=== PATIENT | male | born 1970 | race Two or more races ===

== ENCOUNTER 2016-04-29 11:44 | Inpatient (IN) | payer OTHER ==
[~2016-04-29] VITALS: Ht 177.8 cm; Wt 100.1 kg
[2016-04-29] VITALS (20 sets, daily range): BP systolic 123–161; BP diastolic 64–95; PULSE 54–95; RESP 14–21; Ht 177.8 cm; Wt 100.1 kg
[~2016-04-29 11:44] MED LIST: ALBUMIN HUMAN 5% 250 ML INJ ONE; ROCURONIUM 50 MG INJ ONE
[2016-04-29] MEDS ORDERED: metroNIDAZOLE 500 MG/NS (PMX) 100 ML IVPB ONE (12:00)
[2016-04-29] MEDS ORDERED: SOD CHLORIDE 0.9% 1,000 ML IV SCH (12:00)
[2016-04-29] MEDS ORDERED: AMPICILLIN/SULB 3 GM/NS (PMX) 100 ML IVPB ONE (12:00)
[2016-04-29] MEDS ORDERED: MIDAZOLAM 1 MG/ML 2 ML INJ ONE ×2 (13:46)
[2016-04-29] MEDS ORDERED: morphine SULFATE/PF (10 MG/10 ML) INJ ONE (13:47)
[2016-04-29] MEDS ORDERED: PROPOFOL 100 ML ONE (13:50)
[2016-04-29] MEDS ORDERED: ROCURONIUM 50 MG INJ ONE (13:50)
[2016-04-29] MEDS ORDERED: CEFAZOLIN 1 GM INJ ONE (13:50)
[2016-04-29] MEDS ORDERED: ROPIVACAINE 0.5 % 30 ML VIAL ONE (13:51)
[2016-04-29] MEDS ORDERED: PHENYLephrine (100 MCG/ML) 5ML SYG ONE (15:06)
[2016-04-29] MEDS ORDERED: METOCLOPRAMIDE 10 MG INJ ONE (16:23)
[2016-04-29] MEDS ORDERED: ONDANSETRON 4 MG INJ ONE (16:23)
[2016-04-29] MEDS ORDERED: DEXAMETHASONE 4 MG/ML 1 ML INJ ONE (16:23)
[2016-04-29] MEDS ORDERED: EPHEDrine SULFATE 50 MG/5 ML SYG IV PRN (17:00)
[2016-04-29] MEDS ORDERED: MEPERIDINE 25 MG INJ IV PRN (17:00)
[2016-04-29] MEDS ORDERED: ALBUMIN HUMAN 5% 250 ML IV PRN (17:00)
[2016-04-29] MEDS ORDERED: METOCLOPRAMIDE 10 MG INJ IV PRN (17:00)
[2016-04-29] MEDS ORDERED: NALBUPHINE HCL (10 MG/1 ML) INJ IV PRN (17:00)
[2016-04-29] MEDS ORDERED: DIPHENHYDRAMINE 50 MG INJ IV PRN ×2 (17:00)
[2016-04-29] MEDS ORDERED: GLYCOPYRROLATE 0.4 MG INJ ONE (17:00)
[2016-04-29] MEDS ORDERED: ONDANSETRON 4 MG INJ IV PRN ×2 (17:00)
[2016-04-29] MEDS ORDERED: HYDROmorphONE (0.2 MG/ML) 10ML SYG IV PRN ×3 (17:00)
[2016-04-29] MEDS ORDERED: morphine 4 MG/ML VIAL IV PRN (17:00)
[2016-04-29] MEDS ORDERED: morphine (1 MG/ML) 10ML SYRINGE IV PRN ×3 (17:00)
[2016-04-29] MEDS ORDERED: NEOSTIGMINE 3 MG/3 ML SYRINGE ONE (17:00)
[2016-04-29] MEDS ORDERED: NALOXONE (0.4 MG/ML) INJ IV PRN (17:00)
[2016-04-29] MEDS: LACTATED RINGER'S 1,000 ML IV SCH ×2 (17:16→20:00)
[2016-04-29] MEDS ORDERED: metroNIDAZOLE 500 MG/NS (PMX) 100 ML IVPB SCH (17:30)
[2016-04-29] MEDS ORDERED: AMPICILLIN/SULB 3 GM/NS (PMX) 100 ML IVPB SCH (17:30)
--- NOTE | 2016-04-29 17:35 | OPR ---
DATE OF OPERATION: 04/29/2016 INDICATION: This is a 46-year-old male presenting with the parastomal hernia and a colostomy. He r equests surgical reversal of the colostomy. Risks, alternatives, benefits, and personnel were discu ssed with the patient. Potential complications including, but not limited to, bleeding, infection, anastomotic leak, ureteral injury were discussed with the patient. The patient expressed his unders tanding and consents to the operation. PREOPERATIVE DIAGNOSIS: Colostomy and parastomal hernia. POSTOPERATIVE DIAGNOSIS: Colostomy and parastomal hernia. OPERATION PERFORMED: 1. Reversal of Melissa's pouch with colo-low pelvic rectal anastomosis. 2. Partial colectomy. 3. Parastomal hernia repair. 4. Lysis of adhesions of an hour and a half. SURGEON: Marilee Vernon MD SPECIMEN: Two anastomotic donuts and distal colon. COMPLICATIONS: None. ANESTHESIA: General. DESCRIPTION OF PROCEDURE: The patient was taken to the OR and prepped and draped in usual sterile fashion. Surgical timeout was performed. IV antibiotics were given. Incision was made around the colostomy after the colostomy was sutured closed. Dissection cautery was carried down to the parast omal hernia and the parastomal hernia was identified. The midline incision was performed, excising the scar tissue from prior operation. Fascia was opened in a careful manner without any issues. Th e parastomal hernia was identified. The colon was then removed from the parastomal hernia. The par astomal hernia was closed primarily with running #0 PDS. The distal colon was then resected approxi mately 8 inches from the colostomy site and this was divided with a YUKI stapler 75 blue load. Lysis of adhesions was performed for approximately an hour and half to get down to the pelvis. There are sutures in the low pelvis. Anal sizer placed from 25 to 29. The EEA was then placed and opened wi th the anvil pointing out. The female anvil was also sutured into the colon using a pursestring #2- 0 Prolene. This was then approximated to the male anvil and was closed. The EEA was fired and held with approximately 1 minute of pressure. Leak test was performed with a Constantin syringe and air aft er irrigation of the pelvis, there was no evidence of any air leakage. The midline incision was the n closed with a running 0 Prolene from proximal to distal and distal to proximal. The surgical site was irrigated with irrigation and Betadine. The skin was closed with skin bennie. The colostomy site was closed with a pursestring of 0 Vicryl. There was good hemostasis. Dry dressings were appl ied. Dictated By: MARILEE KOTHARI/NELSON Conf#: [id number] DID#: [id number]
[2016-04-29] MEDS: FENTAnyl 2MCG/ML-ROPIV 0.2% 100 ML BAG EPI SCH (18:19)
[2016-04-29 19:21] LABS: HEMATOCRIT 47.7 % (42.0-52.0); HEMOGLOBIN 16.2 g/dl (14.0-18.0); MEAN CORPUSCULAR HEMOGLOBIN 30.2 pg (29.0-33.0); MEAN CORPUSCULAR VOLUME 88.9 fl (82.0-101.0); MEAN PLATELET VOLUME 9.6 fl (7.4-10.4); PLATELET COUNT 106 10^3/UL (140-440); RED BLOOD COUNT 5.36 10^6/ul (4.70-6.10); RED CELL DISTRIBUTION WIDTH 14.9 % (11.5-14.5); UNCORRECTED WBC 16.5 10^3/ul (4.8-10.8); WHITE BLOOD COUNT 16.5 10^3/ul (4.8-10.8)
[2016-04-29 19:22] LABS: CONDITION 1; SUSPECT 1
[2016-04-29 19:23] LABS: LH ANALYZER COMMENTS 1
[2016-04-29 19:29] LABS: ALBUMIN 3.8 g/dl (3.3-4.9); POTASSIUM 3.9 mmol/L (3.5-5.1)
[2016-04-29 19:31] LABS: BILIRUBIN,INDIRECT 0.3 mg/dl (0-1.1); BILIRUBIN,TOTAL 0.3 mg/dl (0.2-1.3); CREATININE 0.66 mg/dl (0.61-1.24)
[2016-04-29 19:32] LABS: ALBUMIN/GLOBULIN RATIO 1.65; CALCIUM 8.6 mg/dl (8.4-10.2); TOTAL PROTEIN 6.1 g/dl (6.1-8.1)
[2016-04-29] MEDS: AMPICILLIN/SULB 3 GM/NS (PMX) 100 ML IVPB SCH (20:57)
[2016-04-29] MEDS: metroNIDAZOLE 500 MG/NS (PMX) 100 ML IVPB SCH (21:46)
[2016-04-29 22:19] LABS: HEMATOCRIT 47.7 % (42.0-52.0); HEMOGLOBIN 16.2 g/dl (14.0-18.0); RED BLOOD COUNT 5.41 10^6/ul (4.70-6.10); UNCORRECTED WBC 18.1 10^3/ul (4.8-10.8); WHITE BLOOD COUNT 18.1 10^3/ul (4.8-10.8)
[2016-04-29 22:20] LABS: MEAN CORPUSCULAR HEMOGLOBIN 29.9 pg (29.0-33.0); MEAN CORPUSCULAR HGB CONC 33.9 g/dl (32.0-37.0); MEAN CORPUSCULAR VOLUME 88.2 fl (82.0-101.0); MEAN PLATELET VOLUME 9.1 fl (7.4-10.4); PLATELET COUNT 230 10^3/UL (140-440); RED CELL DISTRIBUTION WIDTH 14.6 % (11.5-14.5)
[2016-04-29 23:44] LABS: LYMPHOCYTES # 0.7 10^3/ul (0.8-2.9); MONOCYTE # 0.4 10^3/ul (0.3-0.9)
[2016-04-30 00:30] VITALS: BP 140/67; PULSE 89; RESP 19
[2016-04-30] MEDS: LACTATED RINGER'S 1,000 ML IV SCH ×3 (03:16→21:28)
[2016-04-30] MEDS: AMPICILLIN/SULB 3 GM/NS (PMX) 100 ML IVPB SCH ×3 (03:19→15:39)
[2016-04-30] MEDS: HYDROmorphONE 1 MG/ML SYG IV PRN ×2 (04:45→11:31)
[2016-04-30] MEDS: FENTAnyl 2MCG/ML-ROPIV 0.2% 100 ML BAG EPI SCH ×2 (04:46→18:43)
[2016-04-30 05:02] VITALS: BP 133/63; PULSE 97; RESP 18
[2016-04-30] MEDS: metroNIDAZOLE 500 MG/NS (PMX) 100 ML IVPB SCH ×2 (05:07→14:04)
[2016-04-30 07:41] VITALS: BP 136/82; RESP 19
[2016-04-30 13:00] VITALS: BP 155/78; PULSE 74; RESP 18
[2016-04-30] MEDS ORDERED: IBUPROFEN 600 MG TAB PO PRN (14:30)
--- NOTE | 2016-04-30 14:51 | HP ---
Date/Time of Note Date/Time of Note DATE: 04/30/16 TIME: 14:10 Assessment/Plan VTE Prophylaxis VTE Prophylaxis Intervention: other Lines/Catheters IV Catheter Type (from Nrs): Peripheral IV Urinary Cath still in place: No Assessment/Plan Assessment/Plan -Colostomy and parastomal hernia. - sp Reversal of Melissa's pouch with colo-low pelvic rectal anastomosis. - sp Partial colectomy. - sp Parastomal hernia repair. - sp Lysis of adhesions of an hour and a half. - Marijuana drug abuser PLAN: Admit to [facility] - incentive spirometer - clear liquid diet- advance per surgery - per surgery - pain control- Dilaudid - IVF - Bowel regimen - am labs DW Dr Farr HPI/ROS Admit Date/Time Admit Date/Time Apr 29, 2016 at 11:44 Hx of Present Illness This is a 46-year-old male presenting with the parastomal hernia and a colostomy. Per patient request to Dr Vernon, surgical reversal of the colostomy was performed. Patient had some post op pain and was admitted to [facility] floor for pain management. c/o abdominla surgery site- abdominal dressing noted- small amount of serosanguineous drainage from earlier noted, no new drainage reported. Patient denies any chest pain, shortness of breath, dizziness, palpitations, headache, fever, chills, focal weakness/numbness, abdominal pain/ nvd. Patient is getting blood draw now as earlier he refused blood work. ROS Eyes: no complaints ENT: no complaints Respiratory: no complaints Cardiovascular: no complaints Gastrointestinal: other (inscional pain), pain Genitourinary: no complaints Musculoskeletal: no complaints Skin: no complaints Neurologic: no complaints Endocrine: no complaints Lymphatic: no complaints Immunologic: no complaints PMH/Family/Social Family History Significant Family History: no pertinent family hx Social History Smoking Status: Former smoker Drug Use: marijuana Exam/Review of Systems Vital Signs Vitals Vital Signs Date Time Temp Pulse Resp B/P Pulse Ox O2 Delivery O2 Flow Rate FiO2 04/30/16 10:23 Nasal Cannula 2.0 04/30/16 07:41 98.0 104 19 136/82 97 Intake and Output 04/29/16 04/29/16 04/30/16 15:00 23:00 07:00 Intake Total 3200 ml 950 ml Output Total 700 ml 950 ml Balance 2500 ml 0 ml Exam Constitutional: alert, oriented, well developed Psych: no complaints Head: atraumatic Eyes: EOMI, PERRL, nl sclera ENMT: nl external ears & nose Neck: non-tender Respiratory: clear to auscultation Cardiovascular: nl pulses Gastrointestinal: non-tender, soft Musculoskeletal: nl extremities to inspection Extremities: normal pulses Neurological: nl mental status, nl speech Skin: other Lymph: nontender Labs Result Diagram: 04/29/16210904/29/161912 Medications Medications Current Medications Hydromorphone HCl (Dilaudid) 0.2 mg Q2H PRN IV PAIN LEVEL 1-5 Last administered on 04/30/16 04:45; Admin Dose 0.2 MG; Start 04/29/16 at 17:00 Hydromorphone HCl (Dilaudid) 0.4 mg Q2H PRN IV PAIN LEVEL 6-10 Last administered on 04/30/16 11:31; Admin Dose 0.4 MG; Start 04/29/16 at 17:00 Morphine Sulfate (morphine) 2 mg Q2H PRN IV PAIN LEVEL 1-5; Start 04/29/16 at 17:00 Morphine Sulfate (morphine) 4 mg Q2H PRN IV PAIN LEVEL 6-10; Start 04/29/16 at 17:00 Diphenhydramine HCl (Benadryl) 25 mg Q4H PRN IV PRURITUS; Start 04/29/16 at 17: 00 Nalbuphine HCl (Nubain) 10 mg Q4H PRN IV PRURITUS; Start 04/29/16 at 17:00 Ondansetron HCl (Zofran Inj) 4 mg Q6H PRN IV NAUSEA AND/OR VOMITING; Start at 17:00 Naloxone HCl 0.2 mg 0.2 mg Q2M PRN IV FOR RESP RATE 8 OR LESS; Start 04/29/16 at 17:00 Lactated Ringer's 1,000 ml @ 100 mls/hr Q10H IV Last administered on 14:05; Admin Dose 100 MLS/HR; Start 04/29/16 at 17:16 Ampicillin Sodium/ Sulbactam Sodium 100 ml @ 200 mls/hr Q6H IVPB Last administered on 04/30/16 08:34; Admin Dose 200 MLS/HR; Start 04/29/16 at 21:00 ; Stop 04/30/16 at 20:59 Metronidazole (Flagyl 500 Mg (Pmx)) 100 ml @ 100 mls/hr Q8H IVPB Last administered on 04/30/16t 14:04; Admin Dose 100 MLS/HR; Start 04/29/16 at 22:00 ; Stop 04/30/16 at 21:59 CARLOS CARRILLO Apr 30, 2016 14:20
[2016-04-30] MEDS ORDERED: ACETAMINOPHEN 325 MG TAB PO PRN (15:00)
--- NOTE | 2016-04-30 15:03 | CONS ---
Date/Time of Note Date/Time of Note DATE: 04/30/16 TIME: 14:58 Consultation Date/Type/Reason Admit Date/Time Apr 29, 2016 at 11:44 Initial Consult Date 04/29/16 Type of Consultation: Anesthesia Reason for Consultation Anesthesia for Colostomy Reversal 24 HR Interval Summary Free Text/Dictation POD#1 S/P Colostomy reversal Patient is a 46 yr old male with history of IV drug abuse. He has had Colostomy and is here for Colostomy reversal Procedure, he went under General and Epidural anesthesia, he received Epidural Duramorph for post op pain control. He is doing well, he was ambulated, complaining of mild pain responded well to PO meds for breakthrough pain, he is alert and oriented. No sensory or motor deficit, catheter site clean intact. No apnea or nausea or vomiting or itching noted. Epidural infusion was running at 6 ml/h it increased to 8 cc/hr and a bolus of 8 cc given, his RN was notified. Will follow up. Exam/Review of Systems Vital Signs Vitals Vital Signs Date Time Temp Pulse Resp B/P Pulse Ox O2 Delivery O2 Flow Rate FiO2 04/30/16 10:23 Nasal Cannula 2.0 04/30/16 07:41 98.0 104 19 136/82 97 Intake and Output 04/29/16 04/29/16 04/30/16 15:00 23:00 07:00 Intake Total 3200 ml 950 ml Output Total 700 ml 950 ml Balance 2500 ml 0 ml Results Result Diagram: 04/29/160 04/29/16 1913 Results 24 hrs Laboratory Tests Test 04/29/16 19:13 04/29/16 21:10 Alanine Aminotransferase (ALT/SGPT) 33 Albumin 3.8 Albumin/Globulin Ratio 1.65 Alkaline Phosphatase 105 Anion Gap 16 Aspartate Amino Transf (AST/SGOT) 23 Basophils # Basophils % Blood Morphology Comment Blood Urea Nitrogen 10 Calcium Level 8.6 Carbon Dioxide Level 24 Chloride Level 104 Creatinine 0.66 Direct Bilirubin 0.00 Eosinophils # Eosinophils % Globulin 2.30 Glucose Level 121 Hematocrit 47.7 47.7 Hemoglobin 16.2 16.2 Indirect Bilirubin 0.3 Lymphocytes # 0.7 L Lymphocytes % 4.0 L Mean Corpuscular Hemoglobin 30.2 29.9 Mean Corpuscular Hemoglobin Concent 34.0 33.9 Mean Corpuscular Volume 88.9 88.2 Mean Platelet Volume 9.6 9.1 Monocytes # 0.4 Monocytes % 2.0 Neutrophils # 17.0 H Neutrophils % 94.0 H Nucleated Red Blood Cells # Nucleated Red Blood Cells % Platelet Count 106 L 230 # Potassium Level 3.9 Red Blood Count 5.36 5.41 Red Cell Distribution Width 14.9 H 14.6 H Sodium Level 140 Total Bilirubin 0.3 Total Protein 6.1 White Blood Count 16.5 H 18.1 H Differential Comment MANUAL DIFF Medications Medications Current Medications Hydromorphone HCl (Dilaudid) 0.2 mg Q2H PRN IV PAIN LEVEL 1-5 Last administered on 04/30/16 04:45; Admin Dose 0.2 MG; Start 04/29/16 at 17:00 Hydromorphone HCl (Dilaudid) 0.4 mg Q2H PRN IV PAIN LEVEL 6-10 Last administered on 04/30/16 11:31; Admin Dose 0.4 MG; Start 04/29/16 at 17:00 Morphine Sulfate (morphine) 2 mg Q2H PRN IV PAIN LEVEL 1-5; Start 04/29/16 at 17:00 Morphine Sulfate (morphine) 4 mg Q2H PRN IV PAIN LEVEL 6-10; Start 04/29/16 at 17:00 Diphenhydramine HCl (Benadryl) 25 mg Q4H PRN IV PRURITUS; Start 04/29/16 at 17: 00 Nalbuphine HCl (Nubain) 10 mg Q4H PRN IV PRURITUS; Start 04/29/16 at 17:00 Ondansetron HCl (Zofran Inj) 4 mg Q6H PRN IV NAUSEA AND/OR VOMITING; Start at 17:00 Naloxone HCl 0.2 mg 0.2 mg Q2M PRN IV FOR RESP RATE 8 OR LESS; Start 04/29/16 at 17:00 Lactated Ringer's 1,000 ml @ 100 mls/hr Q10H IV Last administered on 14:05; Admin Dose 100 MLS/HR; Start 04/29/16 at 17:16 Ampicillin Sodium/ Sulbactam Sodium 100 ml @ 200 mls/hr Q6H IVPB Last administered on 04/30/16 08:34; Admin Dose 200 MLS/HR; Start 04/29/16 at 21:00 ; Stop 04/30/16 at 20:59 Metronidazole (Flagyl 500 Mg (Pmx)) 100 ml @ 100 mls/hr Q8H IVPB Last administered on 04/30/16 14:04; Admin Dose 100 MLS/HR; Start 04/29/16 at 22:00 ; Stop 04/30/16 at 21:59 Ibuprofen (Motrin) 600 mg Q6 PRN PO PAIN Last administered on 04/30/16 14:32; Admin Dose 600 MG; Start 04/30/16 at 14:30 Docusate Sodium (Colace) 100 mg BID PO ; Start 04/30/16 at 21:00 Acetaminophen (Tylenol Tab) 650 mg Q6H PRN PO PAIN AND OR ELEVATED TEMP; Start 04/30/16 at 15:00 MIRYAM FARIA MD Apr 30, 2016 15:02
[2016-04-30 15:24] LABS: BASOPHILS % 0.2 % (0.0-2.0); EOSINOPHILS % 0.1 % (0.0-7.0); HEMATOCRIT 44.4 % (42.0-52.0); HEMOGLOBIN 14.7 g/dl (14.0-18.0); LYMPHOCYTES # 1.7 10^3/ul (0.8-2.9); LYMPHOCYTES % 11.2 % (15.0-51.0); MEAN CORPUSCULAR HEMOGLOBIN 29.6 pg (29.0-33.0); MEAN CORPUSCULAR HGB CONC 33.1 g/dl (32.0-37.0); MEAN CORPUSCULAR VOLUME 89.3 fl (82.0-101.0); MONOCYTE # 1.5 10^3/ul (0.3-0.9); MONOCYTES % 9.7 % (0.0-11.0); NEUTROPHILS % 78.3 % (39.0-77.0); PLATELET COUNT 226 10^3/UL (140-415); RED BLOOD COUNT 4.97 10^6/ul (4.70-6.10); RED CELL DISTRIBUTION WIDTH 13.9 % (11.5-14.5); WHITE BLOOD COUNT 15.4 10^3/ul (4.8-10.8)
[2016-04-30 15:28] LABS: MEAN PLATELET VOLUME 11.7 fl (7.4-10.4)
[2016-04-30 15:29] LABS: ADD SCAN DIFF NO
[2016-04-30 16:52] LABS: PLATELET ESTIMATE PLT APPEAR ADEQUATE
[2016-04-30] MEDS ORDERED: KETOROLAC 30 MG INJ IV PRN (17:30)
[2016-04-30 18:56] LABS: ALBUMIN 3.2 g/dl (3.3-4.9); POTASSIUM 4.1 mmol/L (3.5-5.1)
[2016-04-30 18:58] LABS: BILIRUBIN,INDIRECT 0.6 mg/dl (0-1.1); BILIRUBIN,TOTAL 0.6 mg/dl (0.2-1.3); CREATININE 0.68 mg/dl (0.61-1.24)
[2016-04-30 18:59] LABS: ALBUMIN/GLOBULIN RATIO 1.33; CALCIUM 8.5 mg/dl (8.4-10.2); TOTAL PROTEIN 5.6 g/dl (6.1-8.1)
[2016-04-30 19:13] VITALS: BP 152/91; RESP 18; RESP 74
--- NOTE | 2016-04-30 19:14 | PN ---
DATE: 04/30/2016 SUBJECTIVE: This is postop day #1 for this gentleman. Patient had repair of a paracolostomy hernia , closure of colostomy and reconstruction of low pelvic anastomosis, colorectal anastomosis. Compla ins of too much pain. Has been in the bed and required breakthrough pain medication and we had to i ncrease the dosage of the epidural. OBJECTIVE VITAL SIGNS: Temperature 98.6, heart rate 74 - once has been 104, respirations 18, blood pressure 1 65/78, saturation 99% on 2 L nasal cannula. ABDOMEN: Bowel sounds are hypoactive. Dressing is saturated. We had to change the dressing; the d ressing completely changed. Some blood was previously under the dressing, cleaned it and put new dr que. Epidural is running. LOWER EXTREMITIES: No pitting edema, no calf tenderness. Sequential compression devices on the leg s. GENITOURINARY: Carroll catheter is in place. LABORATORY DATA: WBC is 15,400; with 78% segmented; shift to the left; hemoglobin 14.7; hematocrit 44.4 ASSESSMENT: Stable postop day #1. PLAN 1. Increase dosage of the epidural, which was done by the anesthesiologist. 2. We will give Toradol 30 mg IV q.6h. around the clock to add to the pain medication regimen and a lso patient has Dilaudid for breakthrough pain medication. Keep the patient n.p.o. and also keep th e patient in bed rest as long as he is getting epidural. Dictated By: GEOVANNY GRANDE MD PS/NTS Conf#: [id number] DID#: [id number]
[2016-04-30] MEDS: DOCUSATE SODIUM 100 MG CAP PO SCH (21:28)
[2016-04-30] MEDS: KETOROLAC 30 MG INJ IV SCH (23:16)
[2016-05-01] MEDS: HYDROmorphONE 1 MG/ML SYG IV PRN ×3 (04:32→22:16)
[2016-05-01] MEDS: KETOROLAC 30 MG INJ IV SCH ×4 (05:30→23:11)
[2016-05-01] MEDS: LACTATED RINGER'S 1,000 ML IV SCH ×2 (06:28→16:18)
[2016-05-01] MEDS: FENTAnyl 2MCG/ML-ROPIV 0.2% 100 ML BAG EPI SCH ×2 (06:29→15:58)
[2016-05-01 07:00] VITALS: BP 129/78; RESP 20
[2016-05-01] MEDS: DOCUSATE SODIUM 100 MG CAP PO SCH ×2 (09:18→20:12)
--- NOTE | 2016-05-01 09:27 | PN ---
Date/Time of Note Date/Time of Note DATE: 05/01/16 TIME: 09:26 Assessment/Plan VTE Prophylaxis VTE Prophylaxis Intervention: SCD's Lines/Catheters IV Catheter Type (from Nrsg): Peripheral IV Urinary Cath still in place: Yes Reason Cath still needed: other (indicate) Assessment/Plan Chief Complaint/Hosp Course s/p reversal of santos's pouch Problems: Assessment/Plan continue care await bowel function Subjective 24 Hr Interval Summary Free Text/Dictation no nausea, no vomiting, tolerating clears Exam/Review of Systems Vital Signs Vitals Vital Signs Date Time Temp Pulse Resp B/P Pulse Ox O2 Delivery O2 Flow Rate FiO2 05/01/16 07:00 97.1 66 20 129/78 100 04/30/16 20:05 Nasal Cannula 2.0 Intake and Output 04/30/16 04/30/16 05/01/16 15:00 23:00 07:00 Intake Total 200 ml 1650 ml 1550 ml Output Total 1200 ml 2300 ml Balance 200 ml 450 ml -750 ml Exam clean dry intact, small drainage from colostomy site Results Result Diagram: 04/30/16 1415 04/30/16 1830 Results 24 hrs Laboratory Tests Test 04/30/16 14:15 04/30/16 18:30 Basophils # 0.0 Basophils % 0.2 Differential Comment AUTO w/SCAN Eosinophils # 0.0 Eosinophils % 0.1 Hematocrit 44.4 Hemoglobin 14.7 Lymphocytes # 1.7 Lymphocytes % 11.2 L Mean Corpuscular Hemoglobin 29.6 Mean Corpuscular Hemoglobin Concent 33.1 Mean Corpuscular Volume 89.3 Mean Platelet Volume 11.7 #H Monocytes # 1.5 H Monocytes % 9.7 Neutrophils # 12.0 H Neutrophils % 78.3 H Nucleated Red Blood Cells # 0.0 Nucleated Red Blood Cells % 0.0 Platelet Count 226 Platelet Estimate PLT APPEAR ADEQUATE Red Blood Count 4.97 Red Cell Distribution Width 13.9 White Blood Count 15.4 H Alanine Aminotransferase (ALT/SGPT) 21 Albumin 3.2 L Albumin/Globulin Ratio 1.33 Alkaline Phosphatase 78 Anion Gap 15 Aspartate Amino Transf (AST/SGOT) 22 Blood Urea Nitrogen 12 Calcium Level 8.5 Carbon Dioxide Level 24 Chloride Level 101 Creatinine 0.68 Direct Bilirubin 0.00 Globulin 2.40 Glucose Level 102 Indirect Bilirubin 0.6 Potassium Level 4.1 Sodium Level 136 Total Bilirubin 0.6 Total Protein 5.6 L Medications Medications Current Medications Hydromorphone HCl (Dilaudid) 0.2 mg Q2H PRN IV PAIN LEVEL 1-5 Last administered on 05/01/16 04:32; Admin Dose 0.2 MG; Start 04/29/16 at 17:00 Hydromorphone HCl (Dilaudid) 0.4 mg Q2H PRN IV PAIN LEVEL 6-10 Last administered on 04/30/16 11:31; Admin Dose 0.4 MG; Start 04/29/16 at 17:00 Morphine Sulfate (morphine) 2 mg Q2H PRN IV PAIN LEVEL 1-5; Start 04/29/16 at 17:00 Morphine Sulfate (morphine) 4 mg Q2H PRN IV PAIN LEVEL 6-10; Start 04/29/16 at 17:00 Diphenhydramine HCl (Benadryl) 25 mg Q4H PRN IV PRURITUS; Start 04/29/16 at 17: 00 Nalbuphine HCl (Nubain) 10 mg Q4H PRN IV PRURITUS; Start 04/29/16 at 17:00 Ondansetron HCl (Zofran Inj) 4 mg Q6H PRN IV NAUSEA AND/OR VOMITING; Start at 17:00 Naloxone HCl 0.2 mg 0.2 mg Q2M PRN IV FOR RESP RATE 8 OR LESS; Start 04/29/16 at 17:00 Lactated Ringer's (Lr) 1,000 ml @ 100 mls/hr Q10H IV Last administered on 05/01 06:28; Admin Dose 100 MLS/HR; Start 04/29/16 at 17:16 Ibuprofen (Motrin) 600 mg Q6 PRN PO PAIN Last administered on 04/30/16 14:32; Admin Dose 600 MG; Start 04/30/16 at 14:30; Status Future Hold Docusate Sodium (Colace) 100 mg BID PO Last administered on 05/01/16 09:18; Admin Dose 100 MG; Start 04/30/16 at 21:00 Acetaminophen (Tylenol Tab) 650 mg Q6H PRN PO PAIN AND OR ELEVATED TEMP; Start 04/30/16 at 15:00 Ketorolac Tromethamine (Toradol) 30 mg Q6H IV Last administered on 05/01/16 09 :18; Admin Dose 30 MG; Start 04/30/16 at 23:30; Stop 05/03/16 at 23:29 Pola MORGAN May 01, 2016 09:27
[2016-05-01 09:33] LABS: ADD SCAN DIFF NO; BASOPHILS % 0.4 % (0.0-2.0); EOSINOPHILS # 0.1 10^3/ul (0.0-0.5); EOSINOPHILS % 1.3 % (0.0-7.0); HEMATOCRIT 39.5 % (42.0-52.0); HEMOGLOBIN 12.9 g/dl (14.0-18.0); LYMPHOCYTES % 19.3 % (15.0-51.0); MEAN CORPUSCULAR HEMOGLOBIN 29.2 pg (29.0-33.0); MEAN CORPUSCULAR HGB CONC 32.7 g/dl (32.0-37.0); MEAN CORPUSCULAR VOLUME 89.4 fl (82.0-101.0); MEAN PLATELET VOLUME 11.1 fl (7.4-10.4); MONOCYTE # 1.2 10^3/ul (0.3-0.9); MONOCYTES % 11.5 % (0.0-11.0); NEUTROPHIL # 6.9 10^3/ul (1.6-7.5); NEUTROPHILS % 67.3 % (39.0-77.0); PLATELET COUNT 206 10^3/UL (140-415); RED BLOOD COUNT 4.42 10^6/ul (4.70-6.10); RED CELL DISTRIBUTION WIDTH 14.1 % (11.5-14.5); WHITE BLOOD COUNT 10.2 10^3/ul (4.8-10.8)
[2016-05-01 09:50] LABS: ALBUMIN 3.2 g/dl (3.3-4.9)
[2016-05-01 09:51] LABS: POTASSIUM 3.9 mmol/L (3.5-5.1)
[2016-05-01 09:53] LABS: BILIRUBIN,INDIRECT 0.5 mg/dl (0-1.1); BILIRUBIN,TOTAL 0.5 mg/dl (0.2-1.3); CREATININE 0.71 mg/dl (0.61-1.24)
[2016-05-01 09:54] LABS: ALBUMIN/GLOBULIN RATIO 1.28; CALCIUM 8.6 mg/dl (8.4-10.2); TOTAL PROTEIN 5.7 g/dl (6.1-8.1)
[2016-05-01 14:00] VITALS: BP 118/68; PULSE 74; RESP 17
--- NOTE | 2016-05-01 15:41 | CONS ---
Date/Time of Note Date/Time of Note DATE: 05/01/16 TIME: 15:39 Consultation Date/Type/Reason Admit Date/Time Apr 29, 2016 at 11:44 Initial Consult Date 04/29/16 Type of Consultation: Anesthesia Reason for Consultation Colostomy Reversal 24 HR Interval Summary Free Text/Dictation POD#2 S/P Colostomy reversal Patient is a 46 yr old male with history of IV drug abuse. He has had Colostomy and is here for Colostomy reversal Procedure, he went under General and Epidural anesthesia, he received Epidural Duramorph for post op pain control. He is doing much better than yesterday, he was ambulated, complaining of no pain responded well to PO meds for breakthrough pain, he is alert and oriented. No sensory or motor deficit, catheter site clean intact. No apnea or nausea or vomiting or itching noted. Epidural infusion was running at 8 ml/h will continue the same dose seems to be working well for him. Will follow up. Exam/Review of Systems Vital Signs Vitals Vital Signs Date Time Temp Pulse Resp B/P Pulse Ox O2 Delivery O2 Flow Rate FiO2 05/01/16 07:00 97.1 66 20 129/78 100 04/30/16 20:05 Nasal Cannula 2.0 Intake and Output 04/30/16 04/30/16 05/01/16 15:00 23:00 07:00 Intake Total 200 ml 1650 ml 1550 ml Output Total 1200 ml 2300 ml Balance 200 ml 450 ml -750 ml Results Result Diagram: 05/01/16 0900 05/01/16 0900 Results 24 hrs Laboratory Tests Test 04/30/16 18:30 05/01/16 09:00 Alanine Aminotransferase (ALT/SGPT) 21 27 Albumin 3.2 L 3.2 L Albumin/Globulin Ratio 1.33 1.28 Alkaline Phosphatase 78 77 Anion Gap 15 13 Aspartate Amino Transf (AST/SGOT) 22 20 Blood Urea Nitrogen 12 10 Calcium Level 8.5 8.6 Carbon Dioxide Level 24 30 Chloride Level 101 102 Creatinine 0.68 0.71 Direct Bilirubin 0.00 0.00 Globulin 2.40 2.50 Glucose Level 102 95 Indirect Bilirubin 0.6 0.5 Potassium Level 4.1 3.9 Sodium Level 136 141 Total Bilirubin 0.6 0.5 Total Protein 5.6 L 5.7 L Basophils # 0.0 Basophils % 0.4 Eosinophils # 0.1 Eosinophils % 1.3 Hematocrit 39.5 L Hemoglobin 12.9 L Lymphocytes # 2.0 Lymphocytes % 19.3 Mean Corpuscular Hemoglobin 29.2 Mean Corpuscular Hemoglobin Concent 32.7 Mean Corpuscular Volume 89.4 Mean Platelet Volume 11.1 H Monocytes # 1.2 H Monocytes % 11.5 H Neutrophils # 6.9 Neutrophils % 67.3 Nucleated Red Blood Cells # 0.0 Nucleated Red Blood Cells % 0.0 Platelet Count 206 Red Blood Count 4.42 L Red Cell Distribution Width 14.1 White Blood Count 10.2 # Medications Medications Current Medications Hydromorphone HCl (Dilaudid) 0.2 mg Q2H PRN IV PAIN LEVEL 1-5 Last administered on 05/01/16 14:34; Admin Dose 0.2 MG; Start 04/29/16 at 17:00 Hydromorphone HCl (Dilaudid) 0.4 mg Q2H PRN IV PAIN LEVEL 6-10 Last administered on 04/30/16 11:31; Admin Dose 0.4 MG; Start 04/29/16 at 17:00 Morphine Sulfate (morphine) 2 mg Q2H PRN IV PAIN LEVEL 1-5; Start 04/29/16 at 17:00 Morphine Sulfate (morphine) 4 mg Q2H PRN IV PAIN LEVEL 6-10; Start 04/29/16 at 17:00 Diphenhydramine HCl (Benadryl) 25 mg Q4H PRN IV PRURITUS; Start 04/29/16 at 17: 00 Nalbuphine HCl (Nubain) 10 mg Q4H PRN IV PRURITUS; Start 04/29/16 at 17:00 Ondansetron HCl (Zofran Inj) 4 mg Q6H PRN IV NAUSEA AND/OR VOMITING; Start at 17:00 Naloxone HCl 0.2 mg 0.2 mg Q2M PRN IV FOR RESP RATE 8 OR LESS; Start 04/29/16 at 17:00 Lactated Ringer's (Lr) 1,000 ml @ 100 mls/hr Q10H IV Last administered on 05/01 06:28; Admin Dose 100 MLS/HR; Start 04/29/16 at 17:16 Ibuprofen (Motrin) 600 mg Q6 PRN PO PAIN Last administered on 04/30/16 14:32; Admin Dose 600 MG; Start 04/30/16 at 14:30; Status Future Hold Docusate Sodium (Colace) 100 mg BID PO Last administered on 05/01/16 09:18; Admin Dose 100 MG; Start 04/30/16 at 21:00 Acetaminophen (Tylenol Tab) 650 mg Q6H PRN PO PAIN AND OR ELEVATED TEMP; Start 04/30/16 at 15:00 Ketorolac Tromethamine (Toradol) 30 mg Q6H IV Last administered on 05/01/16 09 :18; Admin Dose 30 MG; Start 04/30/16 at 23:30; Stop 05/03/16 at 23:29 MIRYAM FARIA MD May 01, 2016 15:41
--- NOTE | 2016-05-01 17:50 | PN ---
Date/Time of Note Date/Time of Note DATE: 05/01/16 TIME: 17:44 Assessment/Plan VTE Prophylaxis VTE Prophylaxis Intervention: SCD's Lines/Catheters IV Catheter Type (from Nrsg): Peripheral IV Urinary Cath still in place: Yes Reason Cath still needed: urinary retention Assessment/Plan Assessment/Plan - Parastomal hernia and colostomy, status post parastomal hernia repair and reversal of Almonte's pouch. Continue patient on the epidural anesthesia, continue IV fluids. Incentive spirometer every hour while patient is awake. Monitor CBC and BMP. Advance diet per surgery. Sequential compression device for deep venous thrombosis prophylaxis. Further recommendations based on clinical course. Plan of care discussed with Dr. Farr. Subjective 24 Hr Interval Summary Free Text/Dictation Patient complains of significant amount of postoperative pain, continues on on epidural analgesia and Dilaudid for break through pain. Patient has active bowel sounds and positive flatus. Started on clear liquid diet tolerates it well. Patient had small amount of sanguinous oozing from the incision site, continue to monitor hemoglobin and hematocrit, coag. Exam/Review of Systems Vital Signs Vitals Vital Signs Date Time Temp Pulse Resp B/P Pulse Ox O2 Delivery O2 Flow Rate FiO2 05/01/16 07:00 97.1 66 20 129/78 100 04/30/16 20:05 Nasal Cannula 2.0 Intake and Output 04/30/16 04/30/16 05/01/16 15:00 23:00 07:00 Intake Total 200 ml 1650 ml 1550 ml Output Total 1200 ml 2300 ml Balance 200 ml 450 ml -750 ml Exam Constitutional: alert, oriented Psych: no complaints Head: atraumatic, normocephalic Eyes: nl conjunctiva ENMT: nl external ears & nose Neck: non-tender, supple Respiratory: clear to auscultation, normal air movement Cardiovascular: regular rate and rhythm Gastrointestinal: other (Abdomen status post surgery), soft Genitourinary - Male: other (Carroll catheter) Extremities: normal pulses Neurological: TAX STAFF ACCOUNTANT II-XII intact Results Result Diagram: 05/01/16 0900 05/01/16 0900 Results 24 hrs Laboratory Tests Test 04/30/16 18:30 05/01/16 09:00 Alanine Aminotransferase (ALT/SGPT) 21 27 Albumin 3.2 L 3.2 L Albumin/Globulin Ratio 1.33 1.28 Alkaline Phosphatase 78 77 Anion Gap 15 13 Aspartate Amino Transf (AST/SGOT) 22 20 Blood Urea Nitrogen 12 10 Calcium Level 8.5 8.6 Carbon Dioxide Level 24 30 Chloride Level 101 102 Creatinine 0.68 0.71 Direct Bilirubin 0.00 0.00 Globulin 2.40 2.50 Glucose Level 102 95 Indirect Bilirubin 0.6 0.5 Potassium Level 4.1 3.9 Sodium Level 136 141 Total Bilirubin 0.6 0.5 Total Protein 5.6 L 5.7 L Basophils # 0.0 Basophils % 0.4 Eosinophils # 0.1 Eosinophils % 1.3 Hematocrit 39.5 L Hemoglobin 12.9 L Lymphocytes # 2.0 Lymphocytes % 19.3 Mean Corpuscular Hemoglobin 29.2 Mean Corpuscular Hemoglobin Concent 32.7 Mean Corpuscular Volume 89.4 Mean Platelet Volume 11.1 H Monocytes # 1.2 H Monocytes % 11.5 H Neutrophils # 6.9 Neutrophils % 67.3 Nucleated Red Blood Cells # 0.0 Nucleated Red Blood Cells % 0.0 Platelet Count 206 Red Blood Count 4.42 L Red Cell Distribution Width 14.1 White Blood Count 10.2 # Medications Medications Current Medications Hydromorphone HCl (Dilaudid) 0.2 mg Q2H PRN IV PAIN LEVEL 1-5 Last administered on 05/01/16 14:34; Admin Dose 0.2 MG; Start 04/29/16 at 17:00 Hydromorphone HCl (Dilaudid) 0.4 mg Q2H PRN IV PAIN LEVEL 6-10 Last administered on 04/30/16 11:31; Admin Dose 0.4 MG; Start 04/29/16 at 17:00 Morphine Sulfate (morphine) 2 mg Q2H PRN IV PAIN LEVEL 1-5; Start 04/29/16 at 17:00 Morphine Sulfate (morphine) 4 mg Q2H PRN IV PAIN LEVEL 6-10; Start 04/29/16 at 17:00 Diphenhydramine HCl (Benadryl) 25 mg Q4H PRN IV PRURITUS; Start 04/29/16 at 17: 00 Nalbuphine HCl (Nubain) 10 mg Q4H PRN IV PRURITUS; Start 04/29/16 at 17:00 Ondansetron HCl (Zofran Inj) 4 mg Q6H PRN IV NAUSEA AND/OR VOMITING; Start at 17:00 Naloxone HCl 0.2 mg 0.2 mg Q2M PRN IV FOR RESP RATE 8 OR LESS; Start 04/29/16 at 17:00 Lactated Ringer's (Lr) 1,000 ml @ 100 mls/hr Q10H IV Last administered on 05/01 16:18; Admin Dose 100 MLS/HR; Start 04/29/16 at 17:16 Ibuprofen (Motrin) 600 mg Q6 PRN PO PAIN Last administered on 04/30/16 14:32; Admin Dose 600 MG; Start 04/30/16 at 14:30; Status Future Hold Docusate Sodium (Colace) 100 mg BID PO Last administered on 05/01/16 09:18; Admin Dose 100 MG; Start 04/30/16 at 21:00 Acetaminophen (Tylenol Tab) 650 mg Q6H PRN PO PAIN AND OR ELEVATED TEMP; Start 04/30/16 at 15:00 Ketorolac Tromethamine (Toradol) 30 mg Q6H IV Last administered on 05/01/16 09 :18; Admin Dose 30 MG; Start 04/30/16 at 23:30; Stop 05/03/16 at 23:29 JOSUE HERNANDEZ May 01, 2016 17:50
[2016-05-01 19:27] VITALS: BP 148/86; RESP 19
[2016-05-02] MEDS: FENTAnyl 2MCG/ML-ROPIV 0.2% 100 ML BAG EPI SCH ×2 (02:45→13:27)
[2016-05-02] MEDS: HYDROmorphONE 1 MG/ML SYG IV PRN ×3 (04:15→16:25)
[2016-05-02] MEDS: LACTATED RINGER'S 1,000 ML IV SCH ×2 (04:15→11:43)
[2016-05-02] MEDS: KETOROLAC 30 MG INJ IV SCH ×3 (05:30→17:37)
[2016-05-02 07:00] VITALS: BP 138/77; RESP 20
[2016-05-02] MEDS: DOCUSATE SODIUM 100 MG CAP PO SCH ×2 (09:00→20:05)
--- NOTE | 2016-05-02 12:08 | CONS ---
Date/Time of Note Date/Time of Note DATE: 05/02/16 TIME: 12:07 Consultation Date/Type/Reason Admit Date/Time Apr 29, 2016 at 11:44 Initial Consult Date 04/29/16 Type of Consultation: Anesthesia Reason for Consultation Colostomy Reversal 24 HR Interval Summary Free Text/Dictation POD#3 S/P Colostomy reversal Patient is a 46 yr old male with history of IV drug abuse. He has had Colostomy and is here for Colostomy reversal Procedure, he went under General and Epidural anesthesia, he received Epidural Duramorph for post op pain control. He is doing much better than yesterday, he was ambulated, complaining of no pain responded well to PO meds for breakthrough pain, he is alert and oriented. No sensory or motor deficit, catheter site clean intact. No apnea or nausea or vomiting or itching noted. Epidural infusion was running at 8 ml/h will continue the same dose seems to be working well for him. Will follow up. Exam/Review of Systems Vital Signs Vitals Vital Signs Date Time Temp Pulse Resp B/P Pulse Ox O2 Delivery O2 Flow Rate FiO2 05/02/16 07:00 98.3 76 20 138/77 97 05/01/16 14:00 Room Air 04/30/16 20:05 2.0 Intake and Output 05/01/16 05/01/16 05/02/16 14:59 22:59 06:59 Intake Total 1508 ml 1900 ml Output Total 600 ml 1700 ml Balance 908 ml 200 ml Results Result Diagram: 05/01/16 0900 05/01/16 0900 Medications Medications Current Medications Hydromorphone HCl (Dilaudid) 0.2 mg Q2H PRN IV PAIN LEVEL 1-5 Last administered on 05/02/16 10:11; Admin Dose 0.2 MG; Start 04/29/16 at 17:00 Hydromorphone HCl (Dilaudid) 0.4 mg Q2H PRN IV PAIN LEVEL 6-10 Last administered on 05/02/16 04:15; Admin Dose 0.4 MG; Start 04/29/16 at 17:00 Morphine Sulfate (morphine) 2 mg Q2H PRN IV PAIN LEVEL 1-5; Start 04/29/16 at 17:00 Morphine Sulfate (morphine) 4 mg Q2H PRN IV PAIN LEVEL 6-10; Start 04/29/16 at 17:00 Diphenhydramine HCl (Benadryl) 25 mg Q4H PRN IV PRURITUS; Start 04/29/16 at 17: 00 Nalbuphine HCl (Nubain) 10 mg Q4H PRN IV PRURITUS; Start 04/29/16 at 17:00 Ondansetron HCl (Zofran Inj) 4 mg Q6H PRN IV NAUSEA AND/OR VOMITING; Start at 17:00 Naloxone HCl 0.2 mg 0.2 mg Q2M PRN IV FOR RESP RATE 8 OR LESS; Start 04/29/16 at 17:00 Lactated Ringer's (Lr) 1,000 ml @ 100 mls/hr Q10H IV Last administered on 05/02 11:43; Admin Dose 100 MLS/HR; Start 04/29/16 at 17:16 Ibuprofen (Motrin) 600 mg Q6 PRN PO PAIN Last administered on 04/30/16 14:32; Admin Dose 600 MG; Start 04/30/16 at 14:30; Status Future Hold Docusate Sodium (Colace) 100 mg BID PO Last administered on 05/02/16 09:00; Admin Dose 100 MG; Start 04/30/16 at 21:00 Acetaminophen (Tylenol Tab) 650 mg Q6H PRN PO PAIN AND OR ELEVATED TEMP; Start 04/30/16 at 15:00 Ketorolac Tromethamine (Toradol) 30 mg Q6H IV Last administered on 05/02/16 11 :38; Admin Dose 30 MG; Start 04/30/16 at 23:30; Stop 05/03/16 at 23:29 MIRYAM FARIA MD May 02, 2016 12:08
[2016-05-02 14:28] LABS: ADD SCAN DIFF NO
[2016-05-02 14:38] LABS: BASOPHILS % 0.3 % (0.0-2.0); EOSINOPHILS # 0.1 10^3/ul (0.0-0.5); EOSINOPHILS % 1.2 % (0.0-7.0); HEMATOCRIT 38.4 % (42.0-52.0); HEMOGLOBIN 13.2 g/dl (14.0-18.0); LYMPHOCYTES # 1.4 10^3/ul (0.8-2.9); LYMPHOCYTES % 15.2 % (15.0-51.0); MEAN CORPUSCULAR HEMOGLOBIN 30.1 pg (29.0-33.0); MEAN CORPUSCULAR HGB CONC 34.4 g/dl (32.0-37.0); MEAN CORPUSCULAR VOLUME 87.5 fl (82.0-101.0); MEAN PLATELET VOLUME 11.1 fl (7.4-10.4); MONOCYTES % 10.6 % (0.0-11.0); NEUTROPHIL # 6.5 10^3/ul (1.6-7.5); NEUTROPHILS % 72.3 % (39.0-77.0); RED BLOOD COUNT 4.39 10^6/ul (4.70-6.10); RED CELL DISTRIBUTION WIDTH 13.4 % (11.5-14.5)
--- NOTE | 2016-05-02 14:40 | PN ---
DATE: 05/02/2016 Postop day #3. I am seeing the patient for Dr. Vernon. SUBJECTIVE: Feels much better. The pain is much less. Has been passing gas. Has been tolerating clear liquids. OBJECTIVE: VITAL SIGNS: Stable, temperature 98.3, pulse 76, respiratory rate 20, blood pressure 138/77, and 97 % room air. ABDOMEN: Soft. Can tolerate touching and pressing a little bit. GENITOURINARY: Carroll catheter is in place draining adequate urine output. EXTREMITIES: The patient moving his toes, ankles and knees. Epidural still is running. LABORATORY DATA: WBC down to 10,200 with 67% segmented, hemoglobin 12.9, hematocrit 39. These are from yesterday. Today, it has not been done. ASSESSMENT: A 46-year-old male status post reversal of colostomy and repair of the paracolostomy he rnia, postop day #3. The patient is doing much better. Pain is under control with the epidural and breakthrough with Dilaudid, and also continued scheduled use of 30 mg of Toradol IV. PLAN: Continue current care. Whenever the anesthesiologist discontinues the epidural, then we can get the patient out of bed, walk around and then discontinue the Carroll. Dictated By: GEOVANNY GRANDE MD PS/NELSON Conf#: [id number] DID#: [id number]
[2016-05-02 14:46] LABS: PLATELET COUNT 224 10^3/UL (140-415)
[2016-05-02 14:49] LABS: INR 1.08; PT RATIO 1.1; THROMBIN TIME 13.5 SEC (13.8-19.1)
[2016-05-02 14:50] LABS: CREATININE 0.64 mg/dl (0.61-1.24); PARTIAL THROMBOPLASTIN TIME 32.9 Sec (25.0-35.0)
[2016-05-02 14:51] LABS: CALCIUM 9.2 mg/dl (8.4-10.2)
--- NOTE | 2016-05-02 15:30 | PN ---
Date/Time of Note Date/Time of Note DATE: 05/02/16 TIME: 15:27 Assessment/Plan VTE Prophylaxis VTE Prophylaxis Intervention: SCD's Lines/Catheters IV Catheter Type (from Nrs): Peripheral IV Urinary Cath still in place: Yes Assessment/Plan Assessment/Plan - Parastomal hernia and colostomy, status post parastomal hernia repair and reversal of Almonte's pouch. - Continue patient on the epidural anesthesia, continue IV fluids. -Incentive spirometer every hour while patient is awake. - CBC and BMP. Advance diet per surgery. -Sequential compression device for deep venous thrombosis prophylaxis. Further recommendations based on clinical course. Plan of care discussed with Dr. Farr. Subjective 24 Hr Interval Summary Constitutional: improved Eyes: no complaints ENT: no complaints Respiratory: no complaints Gastrointestinal: other (sp surgery) Genitourinary: no complaints Musculoskeletal: no complaints Skin: no complaints Neurologic: no complaints Endocrine: no complaints Lymphatic: no complaints Psychological: no complaints Exam/Review of Systems Vital Signs Vitals Vital Signs Date Time Temp Pulse Resp B/P Pulse Ox O2 Delivery O2 Flow Rate FiO2 05/02/16 07:00 98.3 76 20 138/77 97 05/01/16 14:00 Room Air 04/30/16 20:05 2.0 Intake and Output 05/01/16 05/01/16 05/02/16 15:00 23:00 07:00 Intake Total 1508 ml 1900 ml Output Total 600 ml 1700 ml Balance 908 ml 200 ml Exam Constitutional: alert, oriented Psych: nl mood/affect Head: atraumatic Eyes: EOMI, PERRL, nl sclera ENMT: nl external ears & nose Neck: non-tender Respiratory: clear to auscultation Cardiovascular: nl pulses Gastrointestinal: non-tender, other ( status post parastomal hernia repair and reversal of Almonte's pouch. ), soft Musculoskeletal: nl extremities to inspection Extremities: normal pulses Neurological: nl mental status, nl speech Lymph: nontender Results Result Diagram: 05/02/16 1350 05/02/16 1350 Results 24 hrs Laboratory Tests Test 05/02/16 13:50 Activated Partial Thromboplast Time 32.9 Anion Gap 13 Basophils # 0.0 Basophils % 0.3 Blood Urea Nitrogen 8 Calcium Level 9.2 Carbon Dioxide Level 30 Chloride Level 99 Creatinine 0.64 Eosinophils # 0.1 Eosinophils % 1.2 Glucose Level 96 Hematocrit 38.4 L Hemoglobin 13.2 L INR International Normalized Ratio 1.08 Lymphocytes # 1.4 Lymphocytes % 15.2 Mean Corpuscular Hemoglobin 30.1 Mean Corpuscular Hemoglobin Concent 34.4 Mean Corpuscular Volume 87.5 Mean Platelet Volume 11.1 H Monocytes # 1.0 H Monocytes % 10.6 Neutrophils # 6.5 Neutrophils % 72.3 Nucleated Red Blood Cells # 0.0 Nucleated Red Blood Cells % 0.0 Platelet Count 224 Potassium Level 4.0 Prothrombin Time 14.0 Prothrombin Time Ratio 1.1 Red Blood Count 4.39 L Red Cell Distribution Width 13.4 Sodium Level 138 Thrombin Time Pending White Blood Count 9.0 Medications Medications Current Medications Hydromorphone HCl (Dilaudid) 0.2 mg Q2H PRN IV PAIN LEVEL 1-5 Last administered on 05/02/16 10:11; Admin Dose 0.2 MG; Start 04/29/16 at 17:00 Hydromorphone HCl (Dilaudid) 0.4 mg Q2H PRN IV PAIN LEVEL 6-10 Last administered on 05/02/16 04:15; Admin Dose 0.4 MG; Start 04/29/16 at 17:00 Morphine Sulfate (morphine) 2 mg Q2H PRN IV PAIN LEVEL 1-5; Start 04/29/16 at 17:00 Morphine Sulfate (morphine) 4 mg Q2H PRN IV PAIN LEVEL 6-10; Start 04/29/16 at 17:00 Diphenhydramine HCl (Benadryl) 25 mg Q4H PRN IV PRURITUS; Start 04/29/16 at 17: 00 Nalbuphine HCl (Nubain) 10 mg Q4H PRN IV PRURITUS; Start 04/29/16 at 17:00 Ondansetron HCl (Zofran Inj) 4 mg Q6H PRN IV NAUSEA AND/OR VOMITING; Start at 17:00 Naloxone HCl 0.2 mg 0.2 mg Q2M PRN IV FOR RESP RATE 8 OR LESS; Start 04/29/16 at 17:00 Lactated Ringer's (Lr) 1,000 ml @ 100 mls/hr Q10H IV Last administered on 05/02 11:43; Admin Dose 100 MLS/HR; Start 04/29/16 at 17:16 Ibuprofen (Motrin) 600 mg Q6 PRN PO PAIN Last administered on 04/30/16 14:32; Admin Dose 600 MG; Start 04/30/16 at 14:30; Status Future Hold Docusate Sodium (Colace) 100 mg BID PO Last administered on 05/02/16 09:00; Admin Dose 100 MG; Start 04/30/16 at 21:00 Acetaminophen (Tylenol Tab) 650 mg Q6H PRN PO PAIN AND OR ELEVATED TEMP; Start 04/30/16 at 15:00 Ketorolac Tromethamine (Toradol) 30 mg Q6H IV Last administered on 05/02/16 11 :38; Admin Dose 30 MG; Start 04/30/16 at 23:30; Stop 05/03/16 at 23:29 CARLOS CARRILLO May 02, 2016 15:30
[2016-05-02 19:25] VITALS: BP 120/80; PULSE 68; RESP 18
[2016-05-03] MEDS: FENTAnyl 2MCG/ML-ROPIV 0.2% 100 ML BAG EPI SCH ×3 (00:24→20:22)
[2016-05-03] MEDS: LACTATED RINGER'S 1,000 ML IV SCH ×3 (00:27→21:16)
[2016-05-03] MEDS: KETOROLAC 30 MG INJ IV SCH ×3 (00:29→12:10)
[2016-05-03 08:34] VITALS: BP 117/72; RESP 18
[2016-05-03] MEDS: DOCUSATE SODIUM 100 MG CAP PO SCH ×2 (09:57→21:46)
[2016-05-03 10:55] LABS: ADD SCAN DIFF NO
[2016-05-03 11:03] LABS: BASOPHILS % 0.4 % (0.0-2.0); EOSINOPHILS # 0.2 10^3/ul (0.0-0.5); EOSINOPHILS % 2.7 % (0.0-7.0); HEMATOCRIT 37.8 % (42.0-52.0); HEMOGLOBIN 12.6 g/dl (14.0-18.0); LYMPHOCYTES # 1.2 10^3/ul (0.8-2.9); LYMPHOCYTES % 16.7 % (15.0-51.0); MEAN CORPUSCULAR HEMOGLOBIN 29.4 pg (29.0-33.0); MEAN CORPUSCULAR HGB CONC 33.3 g/dl (32.0-37.0); MEAN CORPUSCULAR VOLUME 88.1 fl (82.0-101.0); MEAN PLATELET VOLUME 10.7 fl (7.4-10.4); MONOCYTE # 0.6 10^3/ul (0.3-0.9); MONOCYTES % 8.7 % (0.0-11.0); NEUTROPHIL # 5.2 10^3/ul (1.6-7.5); NEUTROPHILS % 71.1 % (39.0-77.0); PLATELET COUNT 234 10^3/UL (140-415); RED BLOOD COUNT 4.29 10^6/ul (4.70-6.10); RED CELL DISTRIBUTION WIDTH 13.4 % (11.5-14.5); WHITE BLOOD COUNT 7.4 10^3/ul (4.8-10.8)
[2016-05-03 11:25] LABS: POTASSIUM 3.7 mmol/L (3.5-5.1)
[2016-05-03 11:28] LABS: CREATININE 0.66 mg/dl (0.61-1.24)
[2016-05-03 11:29] LABS: CALCIUM 8.9 mg/dl (8.4-10.2)
--- NOTE | 2016-05-03 13:49 | CONS ---
Date/Time of Note Date/Time of Note DATE: 05/03/16 TIME: 13:47 Consultation Date/Type/Reason Admit Date/Time Apr 29, 2016 at 11:44 Initial Consult Date 04/29/16 Type of Consultation: Anesthesia Reason for Consultation Colostomy Reversal 24 HR Interval Summary Free Text/Dictation POD#4 S/P Colostomy reversal Patient is a 46 yr old male with history of IV drug abuse. He has had Colostomy and is here for Colostomy reversal Procedure, he went under General and Epidural anesthesia, he received Epidural Duramorph for post op pain control. He is doing very well, Pain is well controlled, he was ambulated, complaining of no pain responded well to PO meds for breakthrough pain, he is alert and oriented. No sensory or motor deficit, catheter site clean intact. No apnea or nausea or vomiting or itching noted. Epidural infusion was running at 8 ml/h will continue the same dose seems to be working well for him. Planning to DC the catheter tomorrow. Exam/Review of Systems Vital Signs Vitals Vital Signs Date Time Temp Pulse Resp B/P Pulse Ox O2 Delivery O2 Flow Rate FiO2 05/03/16 08:34 98.1 84 18 117/72 96 05/02/16 19:25 Room Air 04/30/16 20:05 2.0 Intake and Output 05/02/16 05/02/16 05/03/16 15:00 23:00 07:00 Intake Total 1300 ml 2300 ml Output Total 650 ml 2200 ml Balance 650 ml 100 ml Results Result Diagram: 05/03/16 1025 05/03/16 1025 Results 24 hrs Laboratory Tests Test 05/02/16 13:50 05/03/16 10:25 Activated Partial Thromboplast Time 32.9 Anion Gap 13 17 H Basophils # 0.0 0.0 Basophils % 0.3 0.4 Blood Urea Nitrogen 8 9 Calcium Level 9.2 8.9 Carbon Dioxide Level 30 27 Chloride Level 99 102 Creatinine 0.64 0.66 Eosinophils # 0.1 0.2 Eosinophils % 1.2 2.7 Glucose Level 96 113 Hematocrit 38.4 L 37.8 L Hemoglobin 13.2 L 12.6 L INR International Normalized Ratio 1.08 Lymphocytes # 1.4 1.2 Lymphocytes % 15.2 16.7 Mean Corpuscular Hemoglobin 30.1 29.4 Mean Corpuscular Hemoglobin Concent 34.4 33.3 Mean Corpuscular Volume 87.5 88.1 Mean Platelet Volume 11.1 H 10.7 H Monocytes # 1.0 H 0.6 Monocytes % 10.6 8.7 Neutrophils # 6.5 5.2 Neutrophils % 72.3 71.1 Nucleated Red Blood Cells # 0.0 0.0 Nucleated Red Blood Cells % 0.0 0.0 Platelet Count 224 234 Potassium Level 4.0 3.7 Prothrombin Time 14.0 Prothrombin Time Ratio 1.1 Red Blood Count 4.39 L 4.29 L Red Cell Distribution Width 13.4 13.4 Sodium Level 138 142 Thrombin Time 13.5 L White Blood Count 9.0 7.4 Medications Medications Current Medications Hydromorphone HCl (Dilaudid) 0.2 mg Q2H PRN IV PAIN LEVEL 1-5 Last administered on 05/02/16 10:11; Admin Dose 0.2 MG; Start 04/29/16 at 17:00 Hydromorphone HCl (Dilaudid) 0.4 mg Q2H PRN IV PAIN LEVEL 6-10 Last administered on 05/02/16 16:25; Admin Dose 0.4 MG; Start 04/29/16 at 17:00 Morphine Sulfate (morphine) 2 mg Q2H PRN IV PAIN LEVEL 1-5; Start 04/29/16 at 17:00 Morphine Sulfate (morphine) 4 mg Q2H PRN IV PAIN LEVEL 6-10; Start 04/29/16 at 17:00 Diphenhydramine HCl (Benadryl) 25 mg Q4H PRN IV PRURITUS; Start 04/29/16 at 17: 00 Nalbuphine HCl (Nubain) 10 mg Q4H PRN IV PRURITUS; Start 04/29/16 at 17:00 Ondansetron HCl (Zofran Inj) 4 mg Q6H PRN IV NAUSEA AND/OR VOMITING; Start at 17:00 Naloxone HCl 0.2 mg 0.2 mg Q2M PRN IV FOR RESP RATE 8 OR LESS; Start 04/29/16 at 17:00 Lactated Ringer's (Lr) 1,000 ml @ 100 mls/hr Q10H IV Last administered on 05/03 08:18; Admin Dose 100 MLS/HR; Start 04/29/16 at 17:16 Ibuprofen (Motrin) 600 mg Q6 PRN PO PAIN Last administered on 04/30/16 14:32; Admin Dose 600 MG; Start 04/30/16 at 14:30; Status Future Hold Docusate Sodium (Colace) 100 mg BID PO Last administered on 05/03/16 09:57; Admin Dose 100 MG; Start 04/30/16 at 21:00 Acetaminophen (Tylenol Tab) 650 mg Q6H PRN PO PAIN AND OR ELEVATED TEMP; Start 04/30/16 at 15:00 Ketorolac Tromethamine (Toradol) 30 mg Q6H IV Last administered on 05/03/16 12 :10; Admin Dose 30 MG; Start 04/30/16 at 23:30; Stop 05/03/16 at 23:29 MIRYAM FARIA MD May 03, 2016 13:49
--- NOTE | 2016-05-03 16:17 | PN ---
DATE: 05/03/2016 POSTOP DAY: 4. SUBJECTIVE: No complaint. Pain is under control. No bowel movement, passing gas. No nausea, no v omiting. OBJECTIVE: VITAL SIGNS: Temperature 98.1, pulse 84, respiratory rate 18, blood pressure 117/72, 96% on room air saturation. LABORATORY DATA: WBC 7400 with 71% segmented, hemoglobin 12.6, hematocrit 37.8. Chemistry: BUN 9, creatinine 0.66. ABDOMEN: Soft. Dressing intact. No bleeding. EXTREMITIES: Legs no calf tenderness. Patient is still receiving epidural and they are planning to discontinue tomorrow morning, on Wednesday . Patient on clear liquids, tolerating. ASSESSMENT AND PLAN: A 46-year-old gentleman status post reversal of colostomy and repair of the pa racolostomy hernia. Postop day #4 is doing fine and is stable. Tolerating liquid diet. PLAN: Tomorrow discontinue epidural, get the patient out of bed. After that discontinue the Carroll an d start patient on full liquid diet. Dictated By: GEOVANNY GRANDE MD PS/NTS Conf#: [id number] DID#: [id number]
[2016-05-03] MEDS: HYDROmorphONE 1 MG/ML SYG IV PRN (18:08)
--- NOTE | 2016-05-03 18:52 | PN ---
Date/Time of Note Date/Time of Note DATE: 05/03/16 TIME: 18:51 Assessment/Plan Lines/Catheters IV Catheter Type (from [facility]): Peripheral IV Urinary Cath still in place: Yes Assessment/Plan Assessment/Plan - Acute hypoxic respiratory failure. Dr. Hodge is following in pulmonology consultation. Continue ventilatory support and bronchodilators. - Possible healthcare-acquired left lower lung pneumonia versus aspiration. Continue antibiotics per ID. Dr. Sr is following an infection disease consultation. - E. coli ESBL urinary tract infection. Continue meropenem. - Sepsis with Ecoli ESBL bacteremia 2 UTI. - Normocytic anemia. - Dysphagia, with G-tube. - History of chronic respiratory failure with tracheostomy. - Benign prostatic hypertrophy. - Schizoaffective disorder. Continue Seroquel and Ativan as needed for agitation. Continue Lovenox for deep venous thrombosis prophylaxis and Pepcid for peptic ulcer disease prophylaxis. Further recommendations based on clinical course. Plan of care discussed with Dr. Farr. Exam/Review of Systems Vital Signs Vitals Vital Signs Date Time Temp Pulse Resp B/P Pulse Ox O2 Delivery O2 Flow Rate FiO2 05/03/16 08:34 98.1 84 18 117/72 96 05/02/16 19:25 Room Air 04/30/16 20:05 2.0 Intake and Output 05/02/16 05/02/16 05/03/16 15:00 23:00 07:00 Intake Total 1300 ml 2300 ml Output Total 650 ml 2200 ml Balance 650 ml 100 ml Results Result Diagram: 05/03/16 1025 05/03/16 1025 Results 24 hrs Laboratory Tests Test 05/03/16 10:25 Anion Gap 17 H Basophils # 0.0 Basophils % 0.4 Blood Urea Nitrogen 9 Calcium Level 8.9 Carbon Dioxide Level 27 Chloride Level 102 Creatinine 0.66 Eosinophils # 0.2 Eosinophils % 2.7 Glucose Level 113 Hematocrit 37.8 L Hemoglobin 12.6 L Lymphocytes # 1.2 Lymphocytes % 16.7 Mean Corpuscular Hemoglobin 29.4 Mean Corpuscular Hemoglobin Concent 33.3 Mean Corpuscular Volume 88.1 Mean Platelet Volume 10.7 H Monocytes # 0.6 Monocytes % 8.7 Neutrophils # 5.2 Neutrophils % 71.1 Nucleated Red Blood Cells # 0.0 Nucleated Red Blood Cells % 0.0 Platelet Count 234 Potassium Level 3.7 Red Blood Count 4.29 L Red Cell Distribution Width 13.4 Sodium Level 142 White Blood Count 7.4 Medications Medications Current Medications Hydromorphone HCl (Dilaudid) 0.2 mg Q2H PRN IV PAIN LEVEL 1-5 Last administered on 05/02/16 10:11; Admin Dose 0.2 MG; Start 04/29/16 at 17:00 Hydromorphone HCl (Dilaudid) 0.4 mg Q2H PRN IV PAIN LEVEL 6-10 Last administered on 05/03/16 18:08; Admin Dose 0.4 MG; Start 04/29/16 at 17:00 Morphine Sulfate (morphine) 2 mg Q2H PRN IV PAIN LEVEL 1-5; Start 04/29/16 at 17:00 Morphine Sulfate (morphine) 4 mg Q2H PRN IV PAIN LEVEL 6-10; Start 04/29/16 at 17:00 Diphenhydramine HCl (Benadryl) 25 mg Q4H PRN IV PRURITUS; Start 04/29/16 at 17: 00 Nalbuphine HCl (Nubain) 10 mg Q4H PRN IV PRURITUS; Start 04/29/16 at 17:00 Ondansetron HCl (Zofran Inj) 4 mg Q6H PRN IV NAUSEA AND/OR VOMITING; Start at 17:00 Naloxone HCl 0.2 mg 0.2 mg Q2M PRN IV FOR RESP RATE 8 OR LESS; Start 04/29/16 at 17:00 Lactated Ringer's (Lr) 1,000 ml @ 100 mls/hr Q10H IV Last administered on 05/03 08:18; Admin Dose 100 MLS/HR; Start 04/29/16 at 17:16 Ibuprofen (Motrin) 600 mg Q6 PRN PO PAIN Last administered on 04/30/16 14:32; Admin Dose 600 MG; Start 04/30/16 at 14:30; Status Future Hold Docusate Sodium (Colace) 100 mg BID PO Last administered on 05/03/16 09:57; Admin Dose 100 MG; Start 04/30/16 at 21:00 Acetaminophen (Tylenol Tab) 650 mg Q6H PRN PO PAIN AND OR ELEVATED TEMP; Start 04/30/16 at 15:00 CARLOS CARRILLO May 03, 2016 18:52
[2016-05-03 19:39] VITALS: BP 140/88; RESP 18
[2016-05-04] MEDS: HYDROmorphONE 1 MG/ML SYG IV PRN (00:24)
[2016-05-04] MEDS: LACTATED RINGER'S 1,000 ML IV SCH (03:59)
[2016-05-04] MEDS: FENTAnyl 2MCG/ML-ROPIV 0.2% 100 ML BAG EPI SCH (05:47)
[2016-05-04] MEDS: ZOLPIDEM 5 MG TAB PO PRN (05:50)
[2016-05-04 06:07] LABS: ADD SCAN DIFF NO
[2016-05-04 06:15] LABS: BASOPHILS % 0.2 % (0.0-2.0); EOSINOPHILS # 0.3 10^3/ul (0.0-0.5); EOSINOPHILS % 2.8 % (0.0-7.0); HEMATOCRIT 37.1 % (42.0-52.0); HEMOGLOBIN 12.6 g/dl (14.0-18.0); LYMPHOCYTES # 1.5 10^3/ul (0.8-2.9); MEAN CORPUSCULAR HEMOGLOBIN 29.6 pg (29.0-33.0); MEAN CORPUSCULAR VOLUME 87.1 fl (82.0-101.0); MEAN PLATELET VOLUME 10.4 fl (7.4-10.4); MONOCYTE # 0.9 10^3/ul (0.3-0.9); MONOCYTES % 9.3 % (0.0-11.0); NEUTROPHIL # 6.7 10^3/ul (1.6-7.5); NEUTROPHILS % 71.4 % (39.0-77.0); PLATELET COUNT 293 10^3/UL (140-415); RED BLOOD COUNT 4.26 10^6/ul (4.70-6.10); RED CELL DISTRIBUTION WIDTH 13.3 % (11.5-14.5); WHITE BLOOD COUNT 9.4 10^3/ul (4.8-10.8)
[2016-05-04 06:35] LABS: POTASSIUM 3.9 mmol/L (3.5-5.1)
[2016-05-04 06:37] LABS: CREATININE 0.7 mg/dl (0.61-1.24)
[2016-05-04 06:38] LABS: CALCIUM 8.9 mg/dl (8.4-10.2)
[2016-05-04 08:07] VITALS: BP 134/76; RESP 18
--- NOTE | 2016-05-04 08:52 | CONS ---
Date/Time of Note Date/Time of Note DATE: 05/04/16 TIME: 08:49 Consultation Date/Type/Reason Admit Date/Time Apr 29, 2016 at 11:44 Initial Consult Date 04/29/16 Type of Consultation: Anesthesia Reason for Consultation Colostomy Reversal 24 HR Interval Summary Free Text/Dictation POD#5 S/P Colostomy reversal Patient is a 46 yr old male with history of IV drug abuse. He has had Colostomy and is here for Colostomy reversal Procedure, he went under General and Epidural anesthesia, he received Epidural Duramorph for post op pain control. He is doing very well, Pain is well controlled, he was ambulated, complaining of no pain responded well to PO meds for breakthrough pain, he is alert and oriented. No sensory or motor deficit, catheter site clean intact. No apnea or nausea or vomiting or itching noted. Epidural infusion was running at 8 ml/h Epidural catheter was DC'ed today catheter site is intact and clean no erythema. Catheter tip was intact, RN witnessed it, primary team will follow up. Exam/Review of Systems Vital Signs Vitals Vital Signs Date Time Temp Pulse Resp B/P Pulse Ox O2 Delivery O2 Flow Rate FiO2 05/04/16 08:07 98.0 73 18 134/76 96 05/02/16 19:25 Room Air 04/30/16 20:05 2.0 Intake and Output 05/03/16 05/03/16 05/04/16 15:00 23:00 07:00 Intake Total 100 ml 2200 ml 980 ml Output Total 900 ml 1750 ml Balance 100 ml 1300 ml -770 ml Results Result Diagram: 05/04/16 0525 05/04/16 0525 Results 24 hrs Laboratory Tests Test 05/03/16 10:25 05/04/16 05:25 Anion Gap 17 H 16 Basophils # 0.0 0.0 Basophils % 0.4 0.2 Blood Urea Nitrogen 9 8 Calcium Level 8.9 8.9 Carbon Dioxide Level 27 27 Chloride Level 102 101 Creatinine 0.66 0.70 Eosinophils # 0.2 0.3 Eosinophils % 2.7 2.8 Glucose Level 113 117 Hematocrit 37.8 L 37.1 L Hemoglobin 12.6 L 12.6 L Lymphocytes # 1.2 1.5 Lymphocytes % 16.7 16.0 Mean Corpuscular Hemoglobin 29.4 29.6 Mean Corpuscular Hemoglobin Concent 33.3 34.0 Mean Corpuscular Volume 88.1 87.1 Mean Platelet Volume 10.7 H 10.4 Monocytes # 0.6 0.9 Monocytes % 8.7 9.3 Neutrophils # 5.2 6.7 Neutrophils % 71.1 71.4 Nucleated Red Blood Cells # 0.0 0.0 Nucleated Red Blood Cells % 0.0 0.0 Platelet Count 234 293 # Potassium Level 3.7 3.9 Red Blood Count 4.29 L 4.26 L Red Cell Distribution Width 13.4 13.3 Sodium Level 142 140 White Blood Count 7.4 9.4 # Medications Medications Current Medications Hydromorphone HCl (Dilaudid) 0.2 mg Q2H PRN IV PAIN LEVEL 1-5 Last administered on 05/02/16 10:11; Admin Dose 0.2 MG; Start 04/29/16 at 17:00 Hydromorphone HCl (Dilaudid) 0.4 mg Q2H PRN IV PAIN LEVEL 6-10 Last administered on 05/04/16 00:24; Admin Dose 0.4 MG; Start 04/29/16 at 17:00 Morphine Sulfate (morphine) 2 mg Q2H PRN IV PAIN LEVEL 1-5; Start 04/29/16 at 17:00 Morphine Sulfate (morphine) 4 mg Q2H PRN IV PAIN LEVEL 6-10; Start 04/29/16 at 17:00 Diphenhydramine HCl (Benadryl) 25 mg Q4H PRN IV PRURITUS; Start 04/29/16 at 17: 00 Nalbuphine HCl (Nubain) 10 mg Q4H PRN IV PRURITUS; Start 04/29/16 at 17:00 Ondansetron HCl (Zofran Inj) 4 mg Q6H PRN IV NAUSEA AND/OR VOMITING; Start at 17:00 Naloxone HCl 0.2 mg 0.2 mg Q2M PRN IV FOR RESP RATE 8 OR LESS; Start 04/29/16 at 17:00 Lactated Ringer's (Lr) 1,000 ml @ 100 mls/hr Q10H IV Last administered on 05/04 03:59; Admin Dose 100 MLS/HR; Start 04/29/16 at 17:16 Ibuprofen (Motrin) 600 mg Q6 PRN PO PAIN Last administered on 04/30/16 14:32; Admin Dose 600 MG; Start 04/30/16 at 14:30; Status Future Hold Docusate Sodium (Colace) 100 mg BID PO Last administered on 05/03/16 21:46; Admin Dose 100 MG; Start 04/30/16 at 21:00 Acetaminophen (Tylenol Tab) 650 mg Q6H PRN PO PAIN AND OR ELEVATED TEMP; Start 04/30/16 at 15:00 Zolpidem Tartrate (Ambien) 5 mg HS PRN PO INSOMNIA Last administered on 05:50; Admin Dose 5 MG; Start 05/04/16 at 01:00 MIRYAM FARIA MD May 04, 2016 08:52
[2016-05-04] MEDS: DOCUSATE SODIUM 100 MG CAP PO SCH ×2 (09:13→21:11)
--- NOTE | 2016-05-04 10:07 | PN ---
Date/Time of Note Date/Time of Note DATE: 05/04/16 TIME: 10:06 Assessment/Plan VTE Prophylaxis VTE Prophylaxis Intervention: SCD's Lines/Catheters IV Catheter Type (from Nrsg): Peripheral IV Urinary Cath still in place: Yes Reason Cath still needed: other (indicate) (epidural) Assessment/Plan Chief Complaint/Hosp Course s/p reversal of santos's pouch Problems: Assessment/Plan doing well, epidural removed will remove denton in several hours start regular diet Subjective 24 Hr Interval Summary Free Text/Dictation doing well, epidural is out, denton awaiting removal in a few hours, tolerating full liquids, passing gas, no bm yet, no nausea, no vomiting Exam/Review of Systems Vital Signs Vitals Vital Signs Date Time Temp Pulse Resp B/P Pulse Ox O2 Delivery O2 Flow Rate FiO2 05/04/16 08:07 98.0 73 18 134/76 96 05/02/16 19:25 Room Air 04/30/16 20:05 2.0 Intake and Output 05/03/16 05/03/16 05/04/16 15:00 23:00 07:00 Intake Total 100 ml 2200 ml 980 ml Output Total 900 ml 1750 ml Balance 100 ml 1300 ml -770 ml Exam incisions clean, dressings removed no erythema, minimal drainage Results Result Diagram: 05/04/16 0525 05/04/16 0525 Results 24 hrs Laboratory Tests Test 05/03/16 10:25 05/04/16 05:25 Anion Gap 17 H 16 Basophils # 0.0 0.0 Basophils % 0.4 0.2 Blood Urea Nitrogen 9 8 Calcium Level 8.9 8.9 Carbon Dioxide Level 27 27 Chloride Level 102 101 Creatinine 0.66 0.70 Eosinophils # 0.2 0.3 Eosinophils % 2.7 2.8 Glucose Level 113 117 Hematocrit 37.8 L 37.1 L Hemoglobin 12.6 L 12.6 L Lymphocytes # 1.2 1.5 Lymphocytes % 16.7 16.0 Mean Corpuscular Hemoglobin 29.4 29.6 Mean Corpuscular Hemoglobin Concent 33.3 34.0 Mean Corpuscular Volume 88.1 87.1 Mean Platelet Volume 10.7 H 10.4 Monocytes # 0.6 0.9 Monocytes % 8.7 9.3 Neutrophils # 5.2 6.7 Neutrophils % 71.1 71.4 Nucleated Red Blood Cells # 0.0 0.0 Nucleated Red Blood Cells % 0.0 0.0 Platelet Count 234 293 # Potassium Level 3.7 3.9 Red Blood Count 4.29 L 4.26 L Red Cell Distribution Width 13.4 13.3 Sodium Level 142 140 White Blood Count 7.4 9.4 # Medications Medications Current Medications Hydromorphone HCl (Dilaudid) 0.2 mg Q2H PRN IV PAIN LEVEL 1-5 Last administered on 05/02/16 10:11; Admin Dose 0.2 MG; Start 04/29/16 at 17:00 Hydromorphone HCl (Dilaudid) 0.4 mg Q2H PRN IV PAIN LEVEL 6-10 Last administered on 05/04/16 00:24; Admin Dose 0.4 MG; Start 04/29/16 at 17:00 Morphine Sulfate (morphine) 2 mg Q2H PRN IV PAIN LEVEL 1-5; Start 04/29/16 at 17:00 Morphine Sulfate (morphine) 4 mg Q2H PRN IV PAIN LEVEL 6-10; Start 04/29/16 at 17:00 Diphenhydramine HCl (Benadryl) 25 mg Q4H PRN IV PRURITUS; Start 04/29/16 at 17: 00 Nalbuphine HCl (Nubain) 10 mg Q4H PRN IV PRURITUS; Start 04/29/16 at 17:00 Ondansetron HCl (Zofran Inj) 4 mg Q6H PRN IV NAUSEA AND/OR VOMITING; Start at 17:00 Naloxone HCl 0.2 mg 0.2 mg Q2M PRN IV FOR RESP RATE 8 OR LESS; Start 04/29/16 at 17:00 Lactated Ringer's (Lr) 1,000 ml @ 100 mls/hr Q10H IV Last administered on 05/04 03:59; Admin Dose 100 MLS/HR; Start 04/29/16 at 17:16 Ibuprofen (Motrin) 600 mg Q6 PRN PO PAIN Last administered on 04/30/16 14:32; Admin Dose 600 MG; Start 04/30/16 at 14:30; Status Future Hold Docusate Sodium (Colace) 100 mg BID PO Last administered on 05/04/16 09:13; Admin Dose 100 MG; Start 04/30/16 at 21:00 Acetaminophen (Tylenol Tab) 650 mg Q6H PRN PO PAIN AND OR ELEVATED TEMP; Start 04/30/16 at 15:00 Zolpidem Tartrate (Ambien) 5 mg HS PRN PO INSOMNIA Last administered on t 05:50; Admin Dose 5 MG; Start 05/04/16 at 01:00 Pola MORGAN May 04, 2016 10:07
--- NOTE | 2016-05-04 18:38 | PN ---
Date/Time of Note Date/Time of Note DATE: 05/04/16 TIME: 18:36 Assessment/Plan VTE Prophylaxis VTE Prophylaxis Intervention: SCD's Lines/Catheters IV Catheter Type (from Nrs): Peripheral IV Urinary Cath still in place: No Assessment/Plan Chief Complaint/Hosp Course Assessment/Plan - Parastomal hernia and colostomy, status post parastomal hernia repair and reversal of Almonte's pouch. Incentive spirometer every hour while patient is awake. Monitor CBC and BMP. Advance diet per surgery. Sequential compression device for deep venous thrombosis prophylaxis. Further recommendations based on clinical course. Plan of care discussed with Dr. Farr. Problems: Subjective 24 Hr Interval Summary Free Text/Dictation Patient tolerates current diet well, denies nausea vomiting, pain is well controlled. Exam/Review of Systems Vital Signs Vitals Vital Signs Date Time Temp Pulse Resp B/P Pulse Ox O2 Delivery O2 Flow Rate FiO2 05/04/16 08:07 98.0 73 18 134/76 96 05/02/16 19:25 Room Air 04/30/16 20:05 2.0 Intake and Output 05/03/16 05/03/16 05/04/16 15:00 23:00 07:00 Intake Total 100 ml 2200 ml 980 ml Output Total 900 ml 1750 ml Balance 100 ml 1300 ml -770 ml Exam Constitutional: alert, oriented Psych: no complaints Head: atraumatic, normocephalic Eyes: nl conjunctiva ENMT: nl external ears & nose Neck: non-tender, supple Respiratory: clear to auscultation, normal air movement Cardiovascular: regular rate and rhythm Gastrointestinal: other (Abdomen status post surgery), soft Genitourinary - Male: other (Carroll catheter) Extremities: normal pulses Neurological: MATHEMATICS TECHNICIAN II-XII intact Results Result Diagram: 05/04/16 0525 05/04/16 0525 Results 24 hrs Laboratory Tests Test 05/04/16 05:25 Anion Gap 16 Basophils # 0.0 Basophils % 0.2 Blood Urea Nitrogen 8 Calcium Level 8.9 Carbon Dioxide Level 27 Chloride Level 101 Creatinine 0.70 Eosinophils # 0.3 Eosinophils % 2.8 Glucose Level 117 Hematocrit 37.1 L Hemoglobin 12.6 L Lymphocytes # 1.5 Lymphocytes % 16.0 Mean Corpuscular Hemoglobin 29.6 Mean Corpuscular Hemoglobin Concent 34.0 Mean Corpuscular Volume 87.1 Mean Platelet Volume 10.4 Monocytes # 0.9 Monocytes % 9.3 Neutrophils # 6.7 Neutrophils % 71.4 Nucleated Red Blood Cells # 0.0 Nucleated Red Blood Cells % 0.0 Platelet Count 293 # Potassium Level 3.9 Red Blood Count 4.26 L Red Cell Distribution Width 13.3 Sodium Level 140 White Blood Count 9.4 # Medications Medications Current Medications Hydromorphone HCl (Dilaudid) 0.2 mg Q2H PRN IV PAIN LEVEL 1-5 Last administered on 05/02/16 10:11; Admin Dose 0.2 MG; Start 04/29/16 at 17:00 Hydromorphone HCl (Dilaudid) 0.4 mg Q2H PRN IV PAIN LEVEL 6-10 Last administered on 05/04/16 00:24; Admin Dose 0.4 MG; Start 04/29/16 at 17:00 Morphine Sulfate (morphine) 2 mg Q2H PRN IV PAIN LEVEL 1-5; Start 04/29/16 at 17:00 Morphine Sulfate (morphine) 4 mg Q2H PRN IV PAIN LEVEL 6-10; Start 04/29/16 at 17:00 Diphenhydramine HCl (Benadryl) 25 mg Q4H PRN IV PRURITUS; Start 04/29/16 at 17: 00 Nalbuphine HCl (Nubain) 10 mg Q4H PRN IV PRURITUS; Start 04/29/16 at 17:00 Ondansetron HCl (Zofran Inj) 4 mg Q6H PRN IV NAUSEA AND/OR VOMITING; Start at 17:00 Naloxone HCl 0.2 mg 0.2 mg Q2M PRN IV FOR RESP RATE 8 OR LESS; Start 04/29/16 at 17:00 Lactated Ringer's (Lr) 1,000 ml @ 50 mls/hr Q20H IV Last administered on 03:59; Admin Dose 100 MLS/HR; Start 04/29/16 at 17:16 Ibuprofen (Motrin) 600 mg Q6 PRN PO PAIN Last administered on 04/30/16 14:32; Admin Dose 600 MG; Start 04/30/16 at 14:30; Status Future Hold Docusate Sodium (Colace) 100 mg BID PO Last administered on 2/27/17at 09:13; Admin Dose 100 MG; Start 04/30/16 at 21:00 Acetaminophen (Tylenol Tab) 650 mg Q6H PRN PO PAIN AND OR ELEVATED TEMP; Start 04/30/16 at 15:00 Zolpidem Tartrate (Ambien) 5 mg HS PRN PO INSOMNIA Last administered on t 05:50; Admin Dose 5 MG; Start 05/04/16 at 01:00 JOSUE HERNANDEZ May 04, 2016 18:38
[2016-05-04] MEDS: morphine 2 MG INJ IV PRN (18:50)
[2016-05-04 19:19] VITALS: BP 155/84; RESP 16
[2016-05-05] MEDS: LACTATED RINGER'S 1,000 ML IV SCH ×2 (00:24→20:24)
[2016-05-05] MEDS: ZOLPIDEM 5 MG TAB PO PRN (02:02)
[2016-05-05 08:48] VITALS: BP 116/85; RESP 18
[2016-05-05] MEDS: DOCUSATE SODIUM 100 MG CAP PO SCH ×2 (09:11→19:59)
[2016-05-05] MEDS: morphine 2 MG INJ IV PRN ×2 (09:48→14:09)
[2016-05-05 11:45] LABS: ADD SCAN DIFF NO
[2016-05-05 11:57] LABS: POTASSIUM 3.9 mmol/L (3.5-5.1)
[2016-05-05 11:59] LABS: CREATININE 0.67 mg/dl (0.61-1.24)
[2016-05-05 12:00] LABS: CALCIUM 9.2 mg/dl (8.4-10.2)
[2016-05-05 12:16] LABS: BASOPHILS % 0.2 % (0.0-2.0); EOSINOPHILS # 0.2 10^3/ul (0.0-0.5); EOSINOPHILS % 1.7 % (0.0-7.0); HEMATOCRIT 41.5 % (42.0-52.0); HEMOGLOBIN 14.2 g/dl (14.0-18.0); LYMPHOCYTES # 1.3 10^3/ul (0.8-2.9); LYMPHOCYTES % 11.2 % (15.0-51.0); MEAN CORPUSCULAR HEMOGLOBIN 29.6 pg (29.0-33.0); MEAN CORPUSCULAR HGB CONC 34.2 g/dl (32.0-37.0); MEAN CORPUSCULAR VOLUME 86.5 fl (82.0-101.0); MEAN PLATELET VOLUME 10.2 fl (7.4-10.4); MONOCYTE # 0.9 10^3/ul (0.3-0.9); MONOCYTES % 8.3 % (0.0-11.0); NEUTROPHIL # 8.8 10^3/ul (1.6-7.5); NEUTROPHILS % 78.2 % (39.0-77.0); PLATELET COUNT 367 10^3/UL (140-415); RED CELL DISTRIBUTION WIDTH 13.3 % (11.5-14.5); WHITE BLOOD COUNT 11.3 10^3/ul (4.8-10.8)
--- NOTE | 2016-05-05 14:27 | PN ---
Date/Time of Note Date/Time of Note DATE: 05/05/16 TIME: 14:26 Assessment/Plan VTE Prophylaxis VTE Prophylaxis Intervention: SCD's Lines/Catheters IV Catheter Type (from Nrs): Saline Lock Urinary Cath still in place: No Assessment/Plan Chief Complaint/Hosp Course s/p reversal of santos's pouch Problems: Assessment/Plan d/c home f/u in 2 weeks Subjective 24 Hr Interval Summary Free Text/Dictation doing well, tolerating regular diet, had bowel movements Exam/Review of Systems Vital Signs Vitals Vital Signs Date Time Temp Pulse Resp B/P Pulse Ox O2 Delivery O2 Flow Rate FiO2 05/05/16 08:48 98.8 83 18 116/85 96 05/02/16 19:25 Room Air Intake and Output 05/04/16 05/04/16 05/05/16 15:00 23:00 07:00 Intake Total 1360 ml 1200 ml Output Total 3700 ml 1500 ml Balance -2340 ml -300 ml Exam clean dry intact, ostomy site minimal drainage Results Result Diagram: 05/05/16 1120 05/05/16 1120 Results 24 hrs Laboratory Tests Test 05/05/16 11:20 Anion Gap 17 H Basophils # 0.0 Basophils % 0.2 Blood Urea Nitrogen 11 Calcium Level 9.2 Carbon Dioxide Level 26 Chloride Level 101 Creatinine 0.67 Eosinophils # 0.2 Eosinophils % 1.7 Glucose Level 120 Hematocrit 41.5 L Hemoglobin 14.2 Lymphocytes # 1.3 Lymphocytes % 11.2 L Mean Corpuscular Hemoglobin 29.6 Mean Corpuscular Hemoglobin Concent 34.2 Mean Corpuscular Volume 86.5 Mean Platelet Volume 10.2 Monocytes # 0.9 Monocytes % 8.3 Neutrophils # 8.8 H Neutrophils % 78.2 H Nucleated Red Blood Cells # 0.0 Nucleated Red Blood Cells % 0.0 Platelet Count 367 # Potassium Level 3.9 Red Blood Count 4.80 Red Cell Distribution Width 13.3 Sodium Level 140 White Blood Count 11.3 #H Medications Medications Current Medications Hydromorphone HCl (Dilaudid) 0.2 mg Q2H PRN IV PAIN LEVEL 1-5 Last administered on 05/02/16t 10:11; Admin Dose 0.2 MG; Start 04/29/16 at 17:00 Hydromorphone HCl (Dilaudid) 0.4 mg Q2H PRN IV PAIN LEVEL 6-10 Last administered on 05/04/16 00:24; Admin Dose 0.4 MG; Start 04/29/16 at 17:00 Morphine Sulfate (morphine) 2 mg Q2H PRN IV PAIN LEVEL 1-5 Last administered on 05/05/16 14:09; Admin Dose 2 MG; Start 04/29/16 at 17:00 Morphine Sulfate (morphine) 4 mg Q2H PRN IV PAIN LEVEL 6-10; Start 04/29/16 at 17:00 Diphenhydramine HCl (Benadryl) 25 mg Q4H PRN IV PRURITUS; Start 04/29/16 at 17: 00 Nalbuphine HCl (Nubain) 10 mg Q4H PRN IV PRURITUS; Start 04/29/16 at 17:00 Ondansetron HCl (Zofran Inj) 4 mg Q6H PRN IV NAUSEA AND/OR VOMITING; Start at 17:00 Naloxone HCl 0.2 mg 0.2 mg Q2M PRN IV FOR RESP RATE 8 OR LESS; Start 04/29/16 at 17:00 Lactated Ringer's (Lr) 1,000 ml @ 50 mls/hr Q20H IV Last administered on 03:59; Admin Dose 100 MLS/HR; Start 04/29/16 at 17:16 Ibuprofen (Motrin) 600 mg Q6 PRN PO PAIN Last administered on 04/30/16 14:32; Admin Dose 600 MG; Start 04/30/16 at 14:30; Status Future Hold Docusate Sodium (Colace) 100 mg BID PO Last administered on 05/05/16 09:11; Admin Dose 100 MG; Start 04/30/16 at 21:00 Acetaminophen (Tylenol Tab) 650 mg Q6H PRN PO PAIN AND OR ELEVATED TEMP; Start 04/30/16 at 15:00 Zolpidem Tartrate (Ambien) 5 mg HS PRN PO INSOMNIA Last administered on 02:02; Admin Dose 5 MG; Start 05/04/16 at 01:00 Pola MORGAN May 05, 2016 14:27
--- NOTE | 2016-05-05 17:29 | PN ---
Date/Time of Note Date/Time of Note DATE: 05/05/16 TIME: 17:27 Assessment/Plan VTE Prophylaxis VTE Prophylaxis Intervention: SCD's Lines/Catheters IV [facility] Saline Lock Urinary Cath still in place: No Assessment/Plan Chief Complaint/Hosp Course Assessment/Plan - Parastomal hernia and colostomy, status post parastomal hernia repair and reversal of Almonte's pouch. Incentive spirometer every hour while patient is awake. _ Leukocytosis, with low grade fever, diarrhea, Stool for C-diff, UA, CBC tomorrow. Sequential compression device for deep venous thrombosis prophylaxis. Further recommendations based on clinical course. Plan of care discussed with Dr. Farr. Problems: Subjective 24 Hr Interval Summary Free Text/Dictation Patient complains of diarrhea, WBC increased, low grade fever last night, will obtain stool for c-diff, UA, CBC in AM Exam/Review of Systems Vital Signs Vitals Vital Signs Date Time Temp Pulse Resp B/P Pulse Ox O2 Delivery O2 Flow Rate FiO2 05/05/16 08:48 98.8 83 18 116/85 96 05/02/16 19:25 Room Air Intake and Output 05/04/16 05/04/16 05/05/16 15:00 23:00 07:00 Intake Total 1360 ml 1200 ml Output Total 3700 ml 1500 ml Balance -2340 ml -300 ml Exam Constitutional: alert, oriented Psych: no complaints Head: atraumatic, normocephalic Eyes: nl conjunctiva ENMT: nl external ears & nose Neck: non-tender, supple Respiratory: clear to auscultation, normal air movement Cardiovascular: regular rate and rhythm Gastrointestinal: other (Abdomen status post surgery), soft Genitourinary - Male: other (Carroll catheter) Extremities: normal pulses Neurological: INTERNAL COMMUNICATIONS WRITER II-XII intact Results Result Diagram: 05/05/16 1120 05/05/16 1120 Results 24 hrs Laboratory Tests Test 05/05/16 11:20 Anion Gap 17 H Basophils # 0.0 Basophils % 0.2 Blood Urea Nitrogen 11 Calcium Level 9.2 Carbon Dioxide Level 26 Chloride Level 101 Creatinine 0.67 Eosinophils # 0.2 Eosinophils % 1.7 Glucose Level 120 Hematocrit 41.5 L Hemoglobin 14.2 Lymphocytes # 1.3 Lymphocytes % 11.2 L Mean Corpuscular Hemoglobin 29.6 Mean Corpuscular Hemoglobin Concent 34.2 Mean Corpuscular Volume 86.5 Mean Platelet Volume 10.2 Monocytes # 0.9 Monocytes % 8.3 Neutrophils # 8.8 H Neutrophils % 78.2 H Nucleated Red Blood Cells # 0.0 Nucleated Red Blood Cells % 0.0 Platelet Count 367 # Potassium Level 3.9 Red Blood Count 4.80 Red Cell Distribution Width 13.3 Sodium Level 140 White Blood Count 11.3 #H Medications Medications Current Medications Hydromorphone HCl (Dilaudid) 0.2 mg Q2H PRN IV PAIN LEVEL 1-5 Last administered on 05/02/16 10:11; Admin Dose 0.2 MG; Start 04/29/16 at 17:00 Hydromorphone HCl (Dilaudid) 0.4 mg Q2H PRN IV PAIN LEVEL 6-10 Last administered on 05/04/16 00:24; Admin Dose 0.4 MG; Start 04/29/16 at 17:00 Morphine Sulfate (morphine) 2 mg Q2H PRN IV PAIN LEVEL 1-5 Last administered on 05/05/16 14:09; Admin Dose 2 MG; Start 04/29/16 at 17:00 Morphine Sulfate (morphine) 4 mg Q2H PRN IV PAIN LEVEL 6-10; Start 04/29/16 at 17:00 Diphenhydramine HCl (Benadryl) 25 mg Q4H PRN IV PRURITUS; Start 04/29/16 at 17: 00 Nalbuphine HCl (Nubain) 10 mg Q4H PRN IV PRURITUS; Start 04/29/16 at 17:00 Ondansetron HCl (Zofran Inj) 4 mg Q6H PRN IV NAUSEA AND/OR VOMITING; Start at 17:00 Naloxone HCl 0.2 mg 0.2 mg Q2M PRN IV FOR RESP RATE 8 OR LESS; Start 04/29/16 at 17:00 Lactated Ringer's (Lr) 1,000 ml @ 50 mls/hr Q20H IV Last administered on 03:59; Admin Dose 100 MLS/HR; Start 04/29/16 at 17:16 Ibuprofen (Motrin) 600 mg Q6 PRN PO PAIN Last administered on 04/30/16 14:32; Admin Dose 600 MG; Start 04/30/16 at 14:30; Status Future Hold Docusate Sodium (Colace) 100 mg BID PO Last administered on 05/05/16 09:11; Admin Dose 100 MG; Start 04/30/16 at 21:00 Acetaminophen (Tylenol Tab) 650 mg Q6H PRN PO PAIN AND OR ELEVATED TEMP; Start 04/30/16 at 15:00 Zolpidem Tartrate (Ambien) 5 mg HS PRN PO INSOMNIA Last administered on 02:02; Admin Dose 5 MG; Start 05/04/16 at 01:00 JOSUE HERNANDEZ May 05, 2016 17:29
[2016-05-05 21:18] VITALS: BP 137/89; RESP 20
[2016-05-05] MEDS: HYDROCODONE/APAP (5/325) TAB PO PRN (21:29)
[2016-05-06] MEDS: ZOLPIDEM 5 MG TAB PO PRN (01:28)
[2016-05-06 01:34] LABS: ADD UMIC NO; URINE BILIRUBIN (Dip) NEGATIVE (NEGATIVE); URINE BLOOD (Dip) NEGATIVE (NEGATIVE); URINE COLOR LT. YELLOW (YELLOW); URINE GLUCOSE (Dip) NEGATIVE (NEGATIVE); URINE KETONES (Dip) NEGATIVE (NEGATIVE); URINE LEUKOCYTE ESTERASE (Dip) NEGATIVE (NEGATIVE); URINE NITRITE (Dip) NEGATIVE (NEGATIVE); URINE TOTAL PROTEIN (Dip) NEGATIVE (NEGATIVE); URINE UROBILINOGEN (Dip) 0.2 E.U./dL (0.1-1.0)
[2016-05-06] MEDS: HYDROCODONE/APAP (5/325) TAB PO PRN ×4 (04:41→18:10)
[2016-05-06 07:45] VITALS: BP 141/69; RESP 18
[2016-05-06 08:54] LABS: ADD SCAN DIFF NO
[2016-05-06] MEDS: DOCUSATE SODIUM 100 MG CAP PO SCH (08:54)
[2016-05-06 08:58] LABS: BASOPHILS % 0.3 % (0.0-2.0); EOSINOPHILS # 0.5 10^3/ul (0.0-0.5); HEMATOCRIT 42.2 % (42.0-52.0); HEMOGLOBIN 14.5 g/dl (14.0-18.0); LYMPHOCYTES % 17.5 % (15.0-51.0); MEAN CORPUSCULAR HEMOGLOBIN 29.8 pg (29.0-33.0); MEAN CORPUSCULAR HGB CONC 34.4 g/dl (32.0-37.0); MEAN CORPUSCULAR VOLUME 86.7 fl (82.0-101.0); MEAN PLATELET VOLUME 9.9 fl (7.4-10.4); MONOCYTES % 8.7 % (0.0-11.0); NEUTROPHIL # 7.9 10^3/ul (1.6-7.5); NEUTROPHILS % 68.9 % (39.0-77.0); PLATELET COUNT 392 10^3/UL (140-415); RED BLOOD COUNT 4.87 10^6/ul (4.70-6.10); RED CELL DISTRIBUTION WIDTH 13.2 % (11.5-14.5); WHITE BLOOD COUNT 11.5 10^3/ul (4.8-10.8)
--- NOTE | 2016-05-06 11:44 | RADRPT ---
PROCEDURE: XR Chest. CLINICAL INDICATION: Shortness of breath TECHNIQUE: Chest AP portable. COMPARISON: No comparison available. FINDINGS: The mediastinal structures are unremarkable. The heart is normal in size and configuration. The pu lmonary vascularity is normal. The lung aguilar are unremarkable. No consolidation is identified. The pleural spaces are unremarkable. The axial skeleton is unremarkable. IMPRESSION: No active intrathoracic disease. RPTAT: HGDB .Harjinder Carrero MD, MD Date Time Electronically viewed and signed by .Harjinder Carrero MD, MD on 05/06/2016 11:44 .B/
[2016-05-06] MEDS: LACTATED RINGER'S 1,000 ML IV SCH (16:24)
[2016-05-06] MEDS ORDERED: HYDR-3498 PO (16:32)
[2016-05-06] MEDS ORDERED: DOCU-216 PO (16:32)
== END 2016-05-06 18:40 | disposition home or self-care (01) | DRG 331 ==
LOC: REC 11:44 → MS1 18:45
PROVIDERS: ADMIT Surgery; ATTEND Surgery
PROC: 0WQF0ZZ Repair Abdominal Wall, Open Approach (ICD-10-PCS; 2016-04-29)
PROC: 0DSP0ZZ Reposition Rectum, Open Approach (ICD-10-PCS; 2016-04-29)
PROC: 0DNW0ZZ Release Peritoneum, Open Approach (ICD-10-PCS; 2016-04-29)
PROC: 0DBG0ZZ Excision of Left Large Intestine, Open Approach (ICD-10-PCS; principal; 2016-04-29 14:00)
DX: K43.5 Parastomal hernia without obstruction or gangrene (principal); G89.18 Other acute postprocedural pain; Z86.59 Personal history of other mental and behavioral disorders; Z93.3 Colostomy status
CPT/HCPCS: 71010; 80048; 80053; 81003; 85025; 85049; 85610; 85670; 85730; 87075; 87086; 88305; 97161; J0295; J0690; J1100; J1170; J1200; J1885; J2175; J2250; J2270; J2274; J2370; J2405; J2710; J2765; J2795; J3010; J7120; P9045

== ENCOUNTER 2016-05-10 18:42 | Emergency (ER) | payer OTHER ==
[~2016-05-10] VITALS: Ht 180.3 cm; Wt 100.0 kg
[~2016-05-10 18:42] MED LIST changes: -ALBUMIN HUMAN 5% 250 ML INJ ONE; +DOCU-216 PO; +HYDR-3498 PO; -ROCURONIUM 50 MG INJ ONE
[2016-05-10 18:47] VITALS: Ht 180.3 cm; Wt 100.0 kg
[2016-05-10 19:22] LABS: ADD SCAN DIFF NO
[2016-05-10 19:24] LABS: BASOPHILS % 0.3 % (0.0-2.0); EOSINOPHILS % 0.4 % (0.0-7.0); HEMATOCRIT 42.3 % (42.0-52.0); HEMOGLOBIN 15.1 g/dl (14.0-18.0); LYMPHOCYTES # 1.9 10^3/ul (0.8-2.9); LYMPHOCYTES % 19.7 % (15.0-51.0); MEAN CORPUSCULAR HEMOGLOBIN 31.8 pg (29.0-33.0); MEAN CORPUSCULAR HGB CONC 35.7 g/dl (32.0-37.0); MEAN CORPUSCULAR VOLUME 89.1 fl (82.0-101.0); MEAN PLATELET VOLUME 9.3 fl (7.4-10.4); MONOCYTE # 0.6 10^3/ul (0.3-0.9); MONOCYTES % 6.5 % (0.0-11.0); NEUTROPHIL # 7.1 10^3/ul (1.6-7.5); NEUTROPHILS % 72.8 % (39.0-77.0); PLATELET COUNT 275 10^3/UL (140-415); RED BLOOD COUNT 4.75 10^6/ul (4.70-6.10); RED CELL DISTRIBUTION WIDTH 11.9 % (11.5-14.5); WHITE BLOOD COUNT 9.7 10^3/ul (4.8-10.8)
[2016-05-10 19:31] LABS: POTASSIUM 3.4 mmol/L (3.5-5.1)
[2016-05-10 19:34] LABS: CREATININE 0.93 mg/dl (0.61-1.24)
[2016-05-10 19:35] LABS: CALCIUM 9.6 mg/dl (8.4-10.2)
[2016-05-10 20:37] LABS: ADD SCAN DIFF NO
[2016-05-10 20:45] LABS: BASOPHIL # 0.1 10^3/ul (0.0-0.1); BASOPHILS % 0.6 % (0.0-2.0); EOSINOPHILS # 0.2 10^3/ul (0.0-0.5); EOSINOPHILS % 1.7 % (0.0-7.0); HEMATOCRIT 39.1 % (42.0-52.0); HEMOGLOBIN 13.2 g/dl (14.0-18.0); LYMPHOCYTES # 1.9 10^3/ul (0.8-2.9); LYMPHOCYTES % 21.9 % (15.0-51.0); MEAN CORPUSCULAR HEMOGLOBIN 29.7 pg (29.0-33.0); MEAN CORPUSCULAR HGB CONC 33.8 g/dl (32.0-37.0); MEAN CORPUSCULAR VOLUME 88.1 fl (82.0-101.0); MEAN PLATELET VOLUME 9.8 fl (7.4-10.4); MONOCYTE # 0.6 10^3/ul (0.3-0.9); MONOCYTES % 7.2 % (0.0-11.0); NEUTROPHILS % 68.3 % (39.0-77.0); PLATELET COUNT 423 10^3/UL (140-415); RED BLOOD COUNT 4.44 10^6/ul (4.70-6.10); RED CELL DISTRIBUTION WIDTH 13.1 % (11.5-14.5); WHITE BLOOD COUNT 8.7 10^3/ul (4.8-10.8)
[2016-05-10 20:48] LABS: ALBUMIN 3.8 g/dl (3.3-4.9)
[2016-05-10 20:49] LABS: POTASSIUM 3.7 mmol/L (3.5-5.1)
[2016-05-10 20:51] LABS: ALBUMIN/GLOBULIN RATIO 1.22; BILIRUBIN,INDIRECT 0.1 mg/dl (0-1.1); BILIRUBIN,TOTAL 0.1 mg/dl (0.2-1.3); CREATININE 0.69 mg/dl (0.61-1.24); TOTAL PROTEIN 6.9 g/dl (6.1-8.1)
[2016-05-10 20:52] LABS: CALCIUM 9.1 mg/dl (8.4-10.2)
--- NOTE | 2016-05-10 21:34 | ERD ---
ER Documentation Chief Complaint Date/Time DATE: 05/10/16 TIME: 19:15 Chief Complaint S/P COLOSTOMY REVERSAL X1 WEEK SURG SITE BLEEDING HPI 46-year-old male status post reversal of colostomy 04/30/2016, discharged from the hospital yesterday presents complaining of bleeding from his incisions. Otherwise doing well. No abdominal pain, nausea, vomiting, diarrhea or constipation. No dysuria, polyuria or flank pain. No leg pain or swelling. No shortness of breath or cough. No fevers or chills. ROS All systems reviewed and are negative except as per history of present illness. Medications Home Meds Active Scripts Docusate Sodium (Dok) 100 Mg Capsule, 100 MG PO BID for 30 Days, CAP Prov:JOSUE HERNANDEZ 05/06/16 Hydrocodone Bit-Acetaminophen (Hydrocodone Bit-APAP) 5-325MG Tablet, 2 TAB PO Q4H Y for PAIN LEVEL 7-10, #30 TAB Prov:JOSUE HERNANDEZ 05/06/16 Allergies Allergies: Coded Allergies: No Known Drug Allergies (Unverified Allergy, Unknown, 04/29/16) PMhx/Soc Reviewed in chart. As per HPI. History of Surgery: Yes (COLOSTOMY ) Anesthesia Reaction: No Hx Neurological Disorder: No Hx Respiratory Disorders: No Hx Cardiac Disorders: No Hx Psychiatric Problems: No Hx Miscellaneous Medical Probl: Yes (colostomy, hernia) Hx Alcohol Use: No Hx Substance Use: Yes (MARIJUANA) Hx Tobacco Use: No Smoking Status: Former smoker FmHx Not relevant to presenting complaint Physical Exam Vitals Vital Signs Date Time Temp Pulse Resp B/P Pulse Ox O2 Delivery O2 Flow Rate FiO2 05/10/16 22:05 93 20 131/92 100 Room Air 05/10/16 18:47 98.0 99 20 129/79 99 Physical Exam Const: Alert, no acute distress. Head: Atraumatic Eyes: Normal Conjunctiva ENT: Normal External Ears, Nose and Mouth. Neck: Full range of motion. Nontender. Resp: Clear to auscultation bilaterally Cardio: Regular rate and rhythm, no murmurs Abd: Soft, non tender, non distended. Normal bowel sounds. Wounds healing well without erythema or induration.. Midline incision without erythema, induration or drainage. Colostomy closure wound healing well small amount of dark, old blood coming from the wound but no further drainage. Skin: No petechiae or rashes Back: No midline or flank tenderness Ext: No cyanosis, or edema Neur: Awake and alert Psych: Normal Mood and Affect Result Diagram: 05/10/16192105/10/161921 Results 24 hrs Laboratory Tests Test 05/10/16 19:00 05/10/16 19:22 Anion Gap 20 15 Basophils # 0.010^3/ul 0.110^3/ul Basophils % 0.3% 0.6% Blood Urea Nitrogen 13mg/dl 15mg/dl Calcium Level 9.6mg/dl 9.1mg/dl Carbon Dioxide Level 22mmol/L 28mmol/L Chloride Level 107mmol/L 102mmol/L Creatinine 0.93mg/dl 0.69mg/dl Eosinophils # 0.010^3/ul 0.210^3/ul Eosinophils % 0.4% 1.7% Glucose Level 104mg/dl 90mg/dl Hematocrit 42.3% 39.1% Hemoglobin 15.1g/dl 13.2g/dl Lymphocytes # 1.910^3/ul 1.910^3/ul Lymphocytes % 19.7% 21.9% Mean Corpuscular Hemoglobin 31.8pg 29.7pg Mean Corpuscular Hemoglobin Concent 35.7g/dl 33.8g/dl Mean Corpuscular Volume 89.1fl 88.1fl Mean Platelet Volume 9.3fl 9.8fl Monocytes # 0.610^3/ul 0.610^3/ul Monocytes % 6.5% 7.2% Neutrophils # 7.110^3/ul 6.010^3/ul Neutrophils % 72.8% 68.3% Nucleated Red Blood Cells # 0.010^3/ul 0.010^3/ul Nucleated Red Blood Cells % 0.0/100WBC 0.0/100WBC Platelet Count 47221^3/UL 23131^3/UL Potassium Level 3.4mmol/L 3.7mmol/L Red Blood Count 4.7510^6/ul 4.4410^6/ul Red Cell Distribution Width 11.9% 13.1% Sodium Level 146mmol/L 141mmol/L White Blood Count 9.710^3/ul 8.710^3/ul Alanine Aminotransferase (ALT/SGPT) 15IU/L Albumin 3.8g/dl Albumin/Globulin Ratio 1.22 Alkaline Phosphatase 106IU/L Aspartate Amino Transf (AST/SGOT) 158IU/L Direct Bilirubin 0.00mg/dl Globulin 3.10g/dl Indirect Bilirubin 0.1mg/dl Total Bilirubin 0.1mg/dl Total Protein 6.9g/dl Procedures/MDM DOCUMENTS REVIEWED: ED nurse, prior ED, prior records MEDICAL DECISION MAKIN-year-old male status post reversal of colostomy , discharged from the hospital yesterday presents complaining of bleeding from his incisions. Otherwise doing well. No abdominal pain, nausea, vomiting, diarrhea or constipation. Dressings removed and there is some old blood but no active bleeding. H&H is normal. Abdominal exam is benign without tenderness, rebound, guarding or other signs of peritonitis. No fever or other signs of postoperative complications including atelectasis, DVT or urinary tract infection. Stable for discharge with precautionary instructions and outpatient follow-up as counseled. Counseled patient regarding diagnostic workup, diagnosis and need for followup. Understands to return to ED if symptoms recur, worsen or any other concerns. CALLS/CONSULTS: Time: 19:10. Dr Vernon. Recommends discharge if H/H stable. Departure Diagnosis: Primary Impression: Postoperative bleeding from incision Additional Impression: History of colostomy reversal Condition: Stable LARRY VALDEZ MD May 10, 2016 21:34
[2016-05-10 22:05] VITALS: BP 131/92; PULSE 93; RESP 20
== END 2016-05-10 22:07 | disposition home or self-care (01) ==
LOC: E/R 18:42
DX: K94.01 Colostomy hemorrhage (principal); R40.2142 Coma scale, eyes open, spontaneous, at arrival to emergency department; R40.2252 Coma scale, best verbal response, oriented, at arrival to emergency department; R40.2362 Coma scale, best motor response, obeys commands, at arrival to emergency department; Z87.891 Personal history of nicotine dependence
CPT/HCPCS: 80048; 80053; 85025; Z7502; 99283

== ENCOUNTER 2016-05-15 14:04 | Emergency (ER) | payer OTHER ==
[~2016-05-15] VITALS: Ht 177.8 cm; Wt 95.0 kg
[2016-05-15 14:08] VITALS: Ht 177.8 cm; Wt 95.0 kg
[2016-05-15] MEDS ORDERED: HYDROCODONE/APAP (10/325) TAB PO ONE (17:00)
[2016-05-15] MEDS ORDERED: LIDOCAINE 1%/EPI (MDV) 20 ML INJ INFIL ONE (17:00)
--- NOTE | 2016-05-15 18:56 | RADRPT ---
PROCEDURE: CT Abdomen and Pelvis without contrast. CLINICAL INDICATION: Postop pain history of colostomy October 2015, colostomy reversal 04/28/2016 TECHNIQUE: CT scan of the abdomen and pelvis without contrast was performed on a multidetector hig h-resolution CT scanner. The patient was scanned without intravenous contrast. No oral contrast was administered. Coronal and sagittal reformatted images were obtained from the axial source images. Im ages were reviewed on a high-resolution PACS workstation. The total exam CTDI equals 19.39 mGy and the total exam DLP equals 1146.66 mGy-cm. One or more of the following dose reduction techniques were used: - Automated exposure control. - Adjustment of the mA and/or kV according to patient size. - Use of iterative reconstruction technique. COMPARISON: None. FINDINGS: Lungs: Mild dependent atelectasis is seen in the posterior lower lungs. Linear atelectasis/fibrosis is seen at the lung bases. Liver: No abnormality seen. Gallbladder: No abnormality seen. Spleen: No abnormality seen. Stomach: The stomach is not fully distended. No gross abnormality seen. Pancreas: No abnormality seen. Adrenals: No abnormality seen. Kidneys: No abnormality seen. Abdominal aorta: No aneurysm seen. Lymph nodes: No enlarged lymph nodes are seen. Small bowel: No dilated small bowel loops are seen. Colon: Opaque sutures in the rectosigmoid region. Appendix: Not seen. Bladder: No abnormality seen Pelvic organs: No abnormality seen Ascites: None seen. Osseous structures: Lumbar spondylosis. Degenerative changes at sacroiliac joints and hips. Likely small bone island in the right femoral head. Right L5 spondylolysis apparent. There is approximate 6 mm anterior displacement of L4 vertebral body on L5 which appears to be secondary to degenerative changes. Midline anterior abdominal and pelvic skin bennie. There is an approximate 7.3 x 4.4 cm fluid dens ity mass with soft tissue density periphery in the subcutaneous fat of the left anterior lower abdom inal upper pelvic wall in region of previous apparent colostomy most likely a postoperative hematoma /seroma. Opaque sutures in posterior mid to lower pelvis. The lack of oral contrast limits evaluati on of the differentiation of nondilated bowel loops including blind bowel loop from possible postope rative fluid collection. There is an approximate 4.7 x 2.3 x 3.8 cm maximal dimension area of soft t issue density at the superior aspect of the suture line in the rectosigmoid region which could repre sent a blind loop of bowel or postoperative fluid collection hematoma. IMPRESSION: 7.3 x 4.4 cm fluid density mass with soft tissue density periphery in the subcutaneous fat of the le ft anterior lower abdominal upper pelvic wall in region of previous apparent colostomy most likely a postoperative hematoma/seroma. The lack of oral contrast limits evaluation of the differentiation of nondilated bowel loops includi ng blind bowel loop from possible postoperative fluid collection. There is an approximate 4.7 x 2.3 x 3.8 cm maximal dimension area of soft tissue density at the superior aspect of the suture line in the rectosigmoid region which could represent a blind loop of bowel or postoperative fluid collectio n/hematoma. RPTAT: HJES .Gurjit Kunz MD, Date Time Electronically viewed and signed by .Gurjit Kunz MD, on 05/15/2016 18:56 .S/
[2016-05-15] MEDS ORDERED: HYDROCODONE/APAP (5/325) TAB PO ONE (19:00)
[2016-05-15] MEDS ORDERED: HYDR-906 PO (19:02)
--- NOTE | 2016-05-15 19:05 | ERD ---
ER Documentation Chief Complaint Date/Time DATE: 05/15/16 TIME: 19:02 Chief Complaint Pt's ostomy reversal incision site bleeding and pain since this morning. HPI This 46-year-old male had a colostomy takedown approximately 10 days ago. Surgery was performed by Dr. Christian. He saw his surgeon 3 days ago who expressed a hematoma from the colostomy takedown site. Patient complains of recurrent bleeding of dark blood starting yesterday. He did soak to 1-2 dressings. Denies fevers, vomiting. He complains of some postoperative pain in the area of the takedown. ROS All systems reviewed and are negative except as per history of present illness. Medications Home Meds Active Scripts Hydrocodone/Acetaminophen ([place] 5-325 Tablet) 1 Each Tablet, 1 TAB PO Q6H Y for PAIN, #12 TAB Prov:CORBY AKHTAR MD 05/15/16 Docusate Sodium (Dok) 100 Mg Capsule, 100 MG PO BID for 30 Days, CAP Prov:JOSUE HERNANDEZ 05/06/16 Hydrocodone Bit-Acetaminophen (Hydrocodone Bit-APAP) 5-325MG Tablet, 2 TAB PO Q4H Y for PAIN LEVEL 7-10, #30 TAB Prov:JOSUE HERNANDEZ 05/06/16 Allergies Allergies: Coded Allergies: No Known Drug Allergies (Unverified Allergy, Unknown, 04/29/16) PMhx/Soc History of Surgery: Yes (COLOSTOMY OCT 2015, colostomy reversal 04/28/16) Anesthesia Reaction: No Hx Neurological Disorder: No Hx Respiratory Disorders: No Hx Cardiac Disorders: No Hx Psychiatric Problems: No Hx Miscellaneous Medical Probl: Yes (HERNIA) Hx Alcohol Use: No Hx Substance Use: No Hx Tobacco Use: No Physical Exam Vitals Vital Signs Date Time Temp Pulse Resp B/P Pulse Ox O2 Delivery O2 Flow Rate FiO2 05/15/16 14:08 98.2 83 18 138/96 98 Physical Exam Const: [] Alert, [id number]. Head: Atraumatic Eyes: Normal Conjunctiva ENT: Normal External Ears, Nose and Mouth. Neck: Full range of motion..~ No meningismus. Resp: Clear to auscultation bilaterally Cardio: Regular rate and rhythm, no murmurs Abd: Soft, non tender, non distended. Normal bowel sounds. There is a healing midline incision and the left-sided colostomy takedown site shows slight dehiscence with some oozing dark blood. There is some slight surrounding induration without erythema or fluctuance appreciated. Skin: No petechiae or rashes Back: No midline or flank tenderness Ext: No cyanosis, or edema Neur: Awake and alert Psych: Normal Mood and Affect Results 24 hrs Current Medications Medications (Trade) Dose Ordered Sig/Dina Route PRN Reason Start Time Stop Time Status Last Admin Dose Admin Acetaminophen/ Hydrocodone Bitart ([place] (10/325)) 1 tab ONCE ONCE PO 05/15/16 17:00 05/15/16 17:01 DC 05/15/16 16:56 Lidocaine/ Epinephrine (Xylocaine 1%/ Epi (Mdv) 20 ml) 20 ml ONCE ONCE INFIL 05/15/16 17:00 05/15/16 17:01 DC Acetaminophen/ Hydrocodone Bitart ([place] (5/325)) 1 tab ONCE ONCE PO 05/15/16 19:00 05/15/16 19:01 DC Procedures/MDM Patient given [place] 10 mg by mouth for pain. Given the uncertain cause of bleeding and induration a CT abdomen pelvis was performed which shows approximately 5 cm hematoma in the area of the abdominal wall. Does not extend to the fascia. Call was placed to Dr. Tavares and the case is discussed. Dr. Bedolla recommended a pressure dressing and wound check as scheduled in his clinic. He will be advised to return for fevers, vomiting, new worsening symptoms, otherwise leave pressure dressing on. There is no signs or symptoms of ileus, obstruction, intra-abdominal abscess or fever and vomiting but patient should return for new or worsening symptoms. The patient was stable with no new complaints during the ER course. Clinically, there is no current evidence to suggest meningitis, sepsis, acute abdomen, pneumonia, acute coronary syndrome, pulmonary embolism, or any other emergent condition appearing to require further evaluation or hospitalization. The patient should certainly return for any new or worsening symptoms per the aftercare instructions. They should otherwise follow-up with her primary care doctor for reevaluation this week. Departure Diagnosis: Primary Impression: Post-op bleeding Surgical complication system/body Area: subcutaneous tissue Procedure type: dermatologic Qualified Code: L76.21 - Postoperative hemorrhage of subcutaneous tissue following dermatologic procedure Condition: Stable Patient Instructions: Post Op Wound Check, Bleeding Additional Instructions: See Dr. Christian for follow-up as scheduled. Return sooner for fevers, vomiting, new symptoms. Leave pressure dressing on until surgery follow-up. CORBY AKHTAR MD May 15, 2016 19:04
[2016-05-15 19:32] VITALS: BP 119/75; PULSE 74; RESP 16; TEMP 98.3
== END 2016-05-15 19:32 | disposition home or self-care (01) ==
LOC: FTE 14:04
DX: L76.21 Postprocedural hemorrhage of skin and subcutaneous tissue following a dermatologic procedure (principal)
CPT/HCPCS: 74176; Z7502; Z7610

== ENCOUNTER 2017-04-16 15:58 | Emergency (ER) | END 2017-04-16 19:44 | disposition home or self-care (01) ==